=== PATIENT | male | born 1980 | race Caucasian/White ===

== ENCOUNTER 2017-02-24 16:30 | Emergency (ER) | payer BC, OTHER ==
[2017-02-24 16:41] VITALS: TEMP 98.2; BMI 30.9
--- NOTE | 2017-02-24 17:14 | PDOC ---
History of Present Illness - General History Source: Patient Exam Limitations: No Limitations - History of Present Illness Initial Comments: 02/24/17 17:55 The patient is a 36 year old male, with a significant past medical history of hyperlipidemia, who presents to the emergency department complaining of chest pain for approximately one week. He describes the chest pain as intermittent and nonradiating. The patient reports associated numbness to the left arm. He reports associated shortness of breath and diaphoresis, but denies palpitations or lower extremity edema. Patient admits he has recently been under a lot due to recent scam. Patient states he has had several panic attacks within the past 2 days after receiving threats online. The patient denies any hallucinations or suicidal ideations.The patient reports visiting an urgent care clinic earlier today with similar symptoms, during which he had an EKG done, which was normal. The patient denies any fever, chills, headache, or dizziness. The patient denies any recent travel or sick contacts. Allergies: None reported Past Surgical History: None reported Social History: ETOH use. Non smoker. No drug use. PCP: Dr. Ramirez <Manuel Mancuso - Last Filed: 02/24/17 17:55> <Agueda Pandya - Last Filed: 02/27/17 08:42> - General Chief Complaint: Chest Pain Stated Complaint: CHEST PAIN, LT ARM PAIN Time Seen by Provider: 02/24/17 17:12 Past History <Manuel Mancuso - Last Filed: 02/24/17 17:55> - Past Medical History Hypercholesterolemia: Yes - Psycho/Social/Smoking Cessation Hx Anxiety: No Suicidal Ideation: No Smoking History: Never smoked Hx Alcohol Use: Yes Drug/Substance Use Hx: No Substance Use Type: Alcohol <Agueda Pandya - Last Filed: 02/27/17 08:42> - Past Medical History Allergies/Adverse Reactions: Allergies Allergy/AdvReac Type Severity Reaction Status Date / Time No Known Allergies Allergy Verified 02/24/17 16:38 Home Medications: Ambulatory Orders NK [No Known Home Medication] 02/24/17 Review of Systems - Review of Systems Able to Perform ROS?: Yes Comments:: 02/24/17 17:56 GENERAL/CONSTITUTIONAL: No fever or chills. No weakness. HEAD, EYES, EARS, NOSE AND THROAT: No change in vision. No ear pain or discharge. No sore throat. CARDIOVASCULAR: Yes: +chest pain, +shortness of breath, +diaphoresis. RESPIRATORY: No cough, wheezing, or hemoptysis. GASTROINTESTINAL: No nausea, vomiting, diarrhea or constipation. GENITOURINARY: No dysuria, frequency, or change in urination. MUSCULOSKELETAL: No joint or muscle swelling or pain. No neck or back pain. SKIN: No rash NEUROLOGIC: Yes: +left arm numbness. No headache, vertigo, loss of consciousness , or change in strength. ENDOCRINE: No increased thirst. No abnormal weight change. HEMATOLOGIC/LYMPHATIC: No anemia, easy bleeding, or history of blood clots. ALLERGIC/IMMUNOLOGIC: No hives or skin allergy. PSYCHIATRIC: +Anxiety/panic attack. No hallucinations or suicidal ideations. <Manuel Mancuso - Last Filed: 02/24/17 17:55> *Physical Exam - Vital Signs Last Vital Signs Temp Pulse Resp BP Pulse Ox 98.2 F 98 H 17 139/92 98 02/24/17 16:37 02/24/17 17:27 02/24/17 17:27 02/24/17 17:27 02/24/17 17:27 - Physical Exam Comments: 02/24/17 17:55 GENERAL: Awake, alert, and fully oriented, in no acute distress HEAD: No signs of trauma EYES: PERRLA, EOMI, sclera anicteric, conjunctiva clear ENT: Auricles normal inspection, hearing grossly normal, nares patent, oropharynx clear without exudates. Moist mucosa NECK: Normal ROM, supple, no lymphadenopathy, JVD, or masses LUNGS: Breath sounds equal, clear to auscultation bilaterally. No wheezes, and no crackles HEART: Regular rate and rhythm, normal S1 and S2, no murmurs, rubs or gallops ABDOMEN: Soft, nontender, normoactive bowel sounds. No guarding, no rebound. No masses EXTREMITIES: Normal range of motion, no edema. No clubbing or cyanosis. No cords, erythema, or tenderness NEUROLOGICAL: Cranial nerves II through XII grossly intact. Normal speech, normal gait SKIN: Warm, Dry, normal turgor, no rashes or lesions noted. <Manuel Mancuso - Last Filed: 02/24/17 17:55> - Vital Signs Last Vital Signs Temp Pulse Resp BP Pulse Ox 98.2 F 104 H 18 154/97 98 02/24/17 16:37 02/24/17 16:37 02/24/17 16:37 02/24/17 16:37 02/24/17 17:09 <Agueda Pandya - Last Filed: 02/27/17 08:42> ED Treatment Course - LABORATORY CBC & Chemistry Diagram: 02/24/17 17:20 02/24/17 17:20 - ADDITIONAL ORDERS Additional order review: 02/24/17 17:20 RBC 5.53 MCV 85.7 MCHC 33.5 RDW 14.4 MPV 7.6 Neutrophils % 48.7 Lymphocytes % 43.2 H Monocytes % 6.6 Eosinophils % 0.6 Basophils % 0.9 <Manuel Mancuso - Last Filed: 02/24/17 17:55> - LABORATORY CBC & Chemistry Diagram: 02/24/17 17:20 02/24/17 17:20 <Agueda Pandya - Last Filed: 02/27/17 08:42> Medical Decision Making - Medical Decision Making Pain occurred for prior 6 days. Patient is low risk for ACS by clinical eval. EKG wnl. CE negative. Stable for DC home. <Agueda Pandya - Last Filed: 02/27/17 08:42> *DC/Admit/Observation/Transfer - Attestations Scribe Attestion: 02/24/17 17:55 Documentation prepared by Manuel Mancuso, acting as medical center director for Agueda Pandya MD. <Manuel Mancuso - Last Filed: 02/24/17 17:55> - Discharge Dispostion Admit: No <Agueda Pandya - Last Filed: 02/27/17 08:42> Diagnosis at time of Disposition: Chest pain Qualifiers: Chest pain type: unspecified Qualified Code(s): R07.9 - Chest pain, unspecified - Discharge Dispostion Disposition: HOME Condition at time of disposition: Stable - Referrals Referrals: Jordan Ramirez MD [Primary Care Provider] - - Patient Instructions Printed Discharge Instructions: DI for Chest Pain
[2017-02-24 17:31] LABS: BASOPHIL 0.9 % (0-2.0); EOSINOPHIL 0.6 % (0-4.5); MCH 28.7 pg (25.7-33.7); MCHC 33.5 g/dl (32.0-35.9); MEAN CELL VOLUME 85.7 fl (80-96); MEAN PLT VOLUME 7.6 fl (7.5-11.1); NEUTROPHILS 48.7 % (42.8-82.8); PLATELET COUNT 312 K/MM3 (134-434); RDW 14.4 % (11.9-15.9)
[2017-02-24 18:05] LABS: ALBUMIN 4.4 g/dl (3.4-5.0); ANION GAP 9 (8-16); BILIRUBIN,TOTAL 0.6 mg/dL (0.2-1.0); CALCIUM 9.1 mg/dL (8.5-10.1); CO2 28 mmol/L (21-32); COCKROFT - GAULT 97.33; CREATININE 1.2 mg/dL (0.7-1.3); GLUCOSE,RANDOM 103 mg/dL (74-106); SGOT/AST 21 U/L (15-37); SGPT/ALT 45 U/L (12-78)
[2017-02-24 18:07] LABS: ALK PHOS 137 U/L (45-117); TROPONIN I < 0.02 ng/ml (0.00-0.05)
[2017-02-24 18:29] VITALS: BP 133/89; PULSE 89
--- NOTE | 2017-02-26 15:39 | EKG ---
Test Reason : Blood Pressure : / mmHG Vent. Rate : 097 BPM Atrial Rate : 097 BPM P-R Int : 146 ms QRS Dur : 090 ms QT Int : 336 ms P-R-T Axes : 025 009 031 degrees QTc Int : 426 ms NORMAL SINUS RHYTHM NORMAL ECG WHEN COMPARED WITH ECG OF 12-AUG-2010 14:28, NO SIGNIFICANT CHANGE WAS FOUND Confirmed by EDWINA SHAFER MD ([id number]) on 02/26/2017 3:39:06 PM Referred By: Confirmed By:EDWINA SHAFER MD
== END 2017-02-24 18:29 | disposition home or self-care (01) ==
LOC: JER 16:30 → SUPCPDRO 16:30 → JER 18:29
DX: R07.9 Chest pain, unspecified (principal)
CPT/HCPCS: 36415; 71020-TC; 80053; 82550; 82553; 84484; 85025; 93005; 93010; 99284-25

== ENCOUNTER 2018-07-08 20:58 | Observation (INO) | payer BC, OTHER ==
[2018-07-08] MEDS ORDERED: SODIUM CHLORIDE 2,000 ML IV ONE (21:40)
[2018-07-08] MEDS ORDERED: ONDANSETRON 4 MG/2 ML VIAL IVPUSH ONE (21:41)
--- NOTE | 2018-07-08 21:50 | PDOC ---
History of Present Illness - General Chief Complaint: Lightheaded Stated Complaint: vomiting Time Seen by Provider: 07/08/18 21:33 History Source: Patient, Family Exam Limitations: No Limitations - History of Present Illness Initial Comments: 07/08/18 21:48 This is a 37 YOM with h/o HLD and occasional EtOH use who p/w constant vertigo since awakening this morning with about 10 episodes NBNB vomiting today. He additionally notes mild substernal chest pressure, but otherwise no additional symptoms (no LIN, n/t/w focally, neck pain, back pain, abdominal pain, f/c, diarrhea, constipation, testicular pain/swelling, dysuria, SOB, or other symptoms. Per his companions he has been acting normally. He has never had room- spinning dizziness like this before in his life. NIH Stroke Scale - Last Known Well Date/Time & Onset Date Last Known Well: 07/07/18 Time Last Known Well: 23:00 - Initial Evaluation Level of consciousness: Alert Ask patient the month and their age: Answers both correctly Ask patient to open & close eyes; make fist and let go: Obeys both correctly Best gaze (horizontal eye movement): Normal Visual field testing: No visual field loss Facial paresis (Show teeth/raise eyebrows/close eyes tight): Normal symmetrical movement Motor Function: Left Arm: Normal Motor Function: Right Arm: Normal (extends arm 90 (or 45) degrees for 10 seconds without drift Motor Function: Left Leg: Normal (extends leg 30 degrees for 5 seconds without drift) Motor Function: Right Leg: Normal (extends leg 30 degrees for 5 seconds without drift) Limb Ataxia: No ataxia Sensory(Use pinprick test arms,legs,trunk,face/side to side): Normal Best language (Describe picture, name items, read sentences): No Aphasia Dysarthria (read several words): Normal articulation Extinction and Inattention: No abnormality - Total Score NIH Stroke Scale Score: 0 Past History - Past Medical History Allergies/Adverse Reactions: Allergies Allergy/AdvReac Type Severity Reaction Status Date / Time No Known Allergies Allergy Verified 07/08/18 21:10 Home Medications: Ambulatory Orders NK [No Known Home Medication] 02/24/17 COPD: No Hypercholesterolemia: Yes - Suicide/Smoking/Psychosocial Hx Smoking History: Never smoked Hx Alcohol Use: Yes Drug/Substance Use Hx: No Substance Use Type: Alcohol Review of Systems - Review of Systems Able to Perform ROS?: Yes Constitutional: No: Chills, Fever, Unexplained wgt Loss HEENTM: No: Nose Congestion, Throat Pain Respiratory: No: Cough, Shortness of Breath Cardiac (ROS): No: Chest Pain, Palpitations ABD/GI: No: Constipated, Diarrhea, Nausea, Vomiting : No: Burning, Dysuria Musculoskeletal: No: Back Pain, Neck Pain Integumentary: No: Bruising, Rash Neurological: No: Headache, Numbness, Tingling, Weakness, Dizziness Endocrine: No: Unexplained Weight Gain, Unexplained Weight Loss *Physical Exam - Vital Signs Last Vital Signs Temp Pulse Resp BP Pulse Ox 87 18 196/104 H 100 07/08/18 21:05 07/08/18 21:05 07/08/18 21:05 07/08/18 21:05 GENERAL: uncomfortable appearing, sitting on bedside vomiting into emesis basin , companions at bedside, A/Ox4, speaking in full sentences, answers questions appropriately, nontoxic appearing other than vomiting HEENT: PERRLA, EOMI, moist mucous membranes, no posterior pharyngeal erythema, no tonsillar swelling or exudates, no cervical lymphadenopathy NECK: no midline ttp, no spinal stepoff or deformity, full ROM, supple CARDIOVASCULAR: regular rate and rhythm, normal S1S2, MGR, radial and DP pulses 2+ and symmetric, capillary refill <2 seconds, extremities warm and well- perfused LUNGS/RESPIRATORY: no respiratory distress, normal and symmetric chest movements during respirations, lungs CTA bilaterally, equal breath sounds, no cyanosis, no nail clubbing GI/ABDOMEN: symmetric appearance, normoactive bowel sounds, soft, no tenderness to palpation, no midline pulsatile masses, no palpated organomegaly : no CVA tenderness BACK: no midline ttp or stepoff or deformity of thoracic or lumbar spine EXTREMITIES: distal pulses 2+, warm and well-perfused, no LE edema SKIN: warm and dry, no pallor, no jaundice, no bruising, no rash, no skin breakdown, no cuts, no lesions NEUROLOGICAL: GCS 15, CN II-XII grossly intact, gait not initially tested, mild truncal ataxia, horizontal nystagmus on left lateral gaze which is non- direction changing and not rotational, moving all extremities, 5/5 strength proximally and distally, no facial droop, no decreased sensation Heart Score/ECG Review #1 Sinus rhythm, rate of 97, normal axis and intervals, incomplete RBBB, no ischemic ST-T changes. ED Treatment Course - LABORATORY CBC & Chemistry Diagram: 07/08/18 21:55 07/08/18 21:55 - RADIOLOGY Radiology Studies Ordered: Category Date Time Status HEAD CT WITHOUT CONTRAST [CT] Stat CT Scan 07/08/18 21:40 Ordered CHEST PA & LAT [RAD] Stat Radiology 07/08/18 21:40 Ordered CHEST X-RAY PORTABLE* [RAD] Stat Radiology 07/08/18 21:40 Stop Req Medical Decision Making - Medical Decision Making Adult Pt p/w room-spinning dizziness with their recall of sxs consistent with vertigo. Also ~10 episodes NBNB vomiting, inability to balance or ambulate. Initial Vital Signs Pulse Resp BP Pulse Ox 87 18 196/104 H 100 07/08/18 21:05 07/08/18 21:05 07/08/18 21:05 07/08/18 21:05 Exam: As noted in Physical Exam section. DDX IBNLT: peripheral cause (BPPV, otitis media, vestibular neuritis, herpes zoster oticus AKA Vickey Parker syndrome, Meniere disease, labyrinthine concussion , perilymphatic fistula, semicircular canal dehiscence syndrome, Angie syndrome , recurrent vestibulopathy, acoustic neuroma, aminoglycoside toxicity), central cause (brainstem ischemia or cerebellar infarction or hemorrhage e.g. thromboembolism/thrombosis/dissection, vestibular migraine, multiple sclerosis, Chiari malformation, episodic ataxia type 2), or non-vertiginous cause of dizziness (i.e. lightheadedness c/f pre-syncope). W/U ordered: CBCD CMP Mg Phos Cardiac panel Coags T&S EKG CXR Head CT WWO contrast Neck CTA TX ordered: IV, IVF, IV Zofran, PO Ativan, PO Meclizine Laboratory Tests 07/08/18 07/08/18 07/08/18 21:55 21:55 21:55 WBC 14.3 H RBC 5.73 H Hgb 16.6 Hct 50.1 H MCV 87.4 MCH 29.0 MCHC 33.2 RDW 13.8 Plt Count 319 MPV 7.8 Absolute Neuts (auto) 12.2 H Neutrophils % 85.0 H D Lymphocytes % 10.3 D Monocytes % 4.3 Eosinophils % 0.0 D Basophils % 0.4 Nucleated RBC % 0 PT with INR 11.70 INR 0.99 Sodium 137 Potassium 5.2 H Chloride 101 Carbon Dioxide 26 Anion Gap 10 BUN 17 Creatinine 1.0 Creat Clearance w eGFR > 60 Random Glucose 168 H Calcium 8.6 Total Bilirubin 0.8 AST 73 H ALT 117 H Alkaline Phosphatase 139 H Creatine Kinase 184 Creatine Kinase Index 0.5 CK-MB (CK-2) 1.1 Troponin I < 0.02 Total Protein 8.5 H Albumin 4.4 Urine Color Urine Appearance Urine pH Ur Specific Shell[place] Urine Protein Urine Glucose (UA) Urine Ketones Urine Blood Urine Nitrite Urine Bilirubin Urine Urobilinogen Ur Leukocyte Esterase Urine WBC (Auto) Urine RBC (Auto) Ur Epithelial Cells Urine Mucus Blood Type Antibody Screen 07/08/18 07/09/18 21:55 00:17 WBC RBC Hgb Hct MCV MCH MCHC RDW Plt Count MPV Absolute Neuts (auto) Neutrophils % Lymphocytes % Monocytes % Eosinophils % Basophils % Nucleated RBC % PT with INR INR Sodium Potassium Chloride Carbon Dioxide Anion Gap BUN Creatinine Creat Clearance w eGFR Random Glucose Calcium Total Bilirubin AST ALT Alkaline Phosphatase Creatine Kinase Creatine Kinase Index CK-MB (CK-2) Troponin I Total Protein Albumin Urine Color Yellow Urine Appearance Clear Urine pH 6.0 Ur Specific Shellman 1.033 Urine Protein 2+ H Urine Glucose (UA) 2+ H Urine Ketones 1+ H Urine Blood Negative Urine Nitrite Negative Urine Bilirubin Negative Urine Urobilinogen Negative Ur Leukocyte Esterase Negative Urine WBC (Auto) 4 Urine RBC (Auto) <1 Ur Epithelial Cells Rare Urine Mucus Many Blood Type Cancelled Antibody Screen Cancelled EKG: Reviewed; results as noted in ECG Review section. CXR: Nothing acute Head CT WO contrast: Nothing acute Reassessment: Patient continues having vertigo, worse changing positions but always present. Continued having left horizontal nystagmus although extinguishes after 8 seconds now. Veering to the left on ambulation, unable to ambulate alone. Vital Signs Temperature 98.3 F 07/09/18 00:09 Pulse Rate 81 07/09/18 00:09 Respiratory Rate 18 07/09/18 00:09 Blood Pressure 127/83 07/09/18 00:09 O2 Sat by Pulse Oximetry (%) 98 07/09/18 00:09 The Pt is unsafe for discharge at this time. They require further hospital observation, workup, and treatment. Patient's PCP is Dr. Kurtz. Microblog sent to [facility] for admission. Blank Decision to Admit order is placed per ED protocol. 07/09/18 01:13 I spoke with SENIOR TECHNICAL TRAINER Citlali Collado, patient going to Med/Surg Obs. Decision to Admit order corrected with Dr. Stark' name. I placed order for consult with Dr. Moreno who is weapons electrical engineering officer and also is consult preference for Dr. Kurtz's group. *DC/Admit/Observation/Transfer Diagnosis at time of Disposition: Vertigo Vomiting Qualifiers: Vomiting type: unspecified Vomiting Intractability: unspecified Nausea presence : with nausea Qualified Code(s): R11.2 - Nausea with vomiting, unspecified - Discharge Dispostion Condition at time of disposition: Guarded Decision to Admit order: Yes - Referrals - Patient Instructions - Post Discharge Activity
[2018-07-08] MEDS ORDERED: MECLIZINE HCL 25 MG TABLET (FP) PO ONE (22:00)
[2018-07-08] MEDS ORDERED: ONDANSETRON 4 MG/2 ML VIAL ONE (22:02)
[2018-07-08] MEDS ORDERED: LORazepam 0.5 MG TABLET PO ONE (22:16)
[2018-07-08] MEDS ORDERED: LORazepam 0.5 MG TABLET ONE (22:18)
[2018-07-08] MEDS ORDERED: MECLIZINE HCL 25 MG TABLET (FP) ONE (22:18)
[2018-07-08 22:30] LABS: BASO % 0.4 % (0-2.0); HEMATOCRIT 50.1 % (35.4-49); HEMOGLOBIN 16.6 GM/dL (11.7-16.9); LYMPH % 10.3 % (8-40); MCHC 33.2 g/dl (32.0-35.9); MEAN CELL VOLUME 87.4 fl (80-96); MEAN PLT VOLUME 7.8 fl (7.5-11.1); MONO % 4.3 % (3.8-10.2); PLATELET COUNT 319 K/MM3 (134-434); RBC 5.73 M/mm3 (4.00-5.60); RDW 13.8 % (11.9-15.9); WHITE BLOOD COUNT 14.3 K/mm3 (4.0-10.0)
[2018-07-08 22:45] LABS: INR 0.99 (0.83-1.09); PROTHROMBIN TIME (PATIENT) 11.7 SEC (9.7-13.0)
[2018-07-08 23:00] LABS: ALBUMIN 4.4 g/dl (3.4-5.0); ALK PHOS 139 U/L (45-117); ANION GAP 10 MMOL/L (8-16); BILIRUBIN,TOTAL 0.8 mg/dL (0.2-1); BLOOD UREA NITROGEN 17 mg/dL (7-18); CALCIUM 8.6 mg/dL (8.5-10.1); CHLORIDE 101 mmol/L (98-107); CO2 26 mmol/L (21-32); GLUCOSE,RANDOM 168 mg/dL (74-106); SGPT/ALT 117 U/L (13-61); SODIUM 137 mmol/L (136-145); TOT PROT 8.5 g/dl (6.4-8.2)
[2018-07-08 23:01] LABS: POTASSIUM 5.2 mmol/L (3.5-5.1); SGOT/AST 73 U/L (15-37)
--- NOTE | 2018-07-08 23:31 | PDOC ---
Attending Attestation - HPI HPI: 07/08/18 23:33 The patient is a 37 year old male, with a significant past medical history of HLD, who presents to the ED complaining of chest pain, nausea, vomiting and dizziness since this morning. He reports a total of 10 episodes of nonbilious and nonbloody emesis. He describes his chest pain as a pressure, ranging from mild to moderate, without radiation or modifying factors. He reports that he has never had this kind of dizziness where the room is spinning before. The patient denies shortness of breath, headache, fever, chills, diarrhea or constipation. Denies dysuria, frequency, urgency and hematuria. Allergies: None reported Past Surgical History: None reported Social History: ETOH use. Non smoker. No drug use. PCP: Dr. Ramirez <Phuc Robles - Last Filed: 07/08/18 23:33> - Physicial Exam PE: 07/09/18 01:18 Vitals: Triage vital signs reviewed General Appearance: No acute distress, well nourished, well developed Eyes: little nystagmus. Pupils equal reactive round, extraocular movement intact Neck: Supple; No nuchal rigidity Chest Wall: Nontender Cardiac: Regular rate and rhythm, no murmurs, no rubs, no gallops Lungs: Clear to auscultation bilateral, good air movement bilaterally Abdomen: Soft, nondistended, normal bowel sounds, nontender to palpation Extremities: Full range of motion to all extremities, no cyanosis, clubbing, or edema Skin: Warm and dry, no rashes or lesions, no rash, no petechiae Neuro: (+) Good strength, good sensation, unsteady gait. AOX3; Cranial Nerves 2 -12 grossly intact, Strength intact to all extremities, Sensation intact to all extremities. Psych: Normal mood, normal affect - Medical Decision Making 07/09/18 01:19 Documentation prepared by Ana Epps, acting as medical instrument technician for Fadi Bianchi MD. <Ana Epps - Last Filed: 07/09/18 01:18> - Resident Resident Name: Kathy Bryan - ED Attending Attestation I have performed the following: I have examined & evaluated the patient, The case was reviewed & discussed with the resident, I agree w/resident's findings & plan, Exceptions are as noted - Medical Decision Making 37 years old past medical history significant for hyperlipidemia presents to the emergency department with intense room spinning sensation nausea vomiting. He feels unbalanced when he ambulates he tried to go to work but was too symptomatic and was sent home during the entire day symptoms have been persistent concent but at times are worse when turning his head in certain directions In the emergency department patient actively vomiting multiple times was ordered for 2 L of normal saline meclizine and Ativan and a cat CT His neurologic examination is notable for horizontal nystagmus which worsens when he looks to the left as well as unsteady gait Despite fluids and medications patient still remains symptomatic his history and examination is most consistent with vertigo although the persistence of the symptomatology and the lack of a complete resolution in between episodes may require further management We'll admit to the hospital for neurology consultation and further management. <Fadi Bianchi - Last Filed: 07/09/18 04:12>
[2018-07-09 00:50] LABS: URINE APPEARANCE CLEAR; URINE BILIRUBIN NEGATIVE (<2.0 mg/dL); URINE COLOR YELLOW; URINE GLUCOSE (UA) 2+ (NEGATIVE); URINE KETONE 1+ (NEGATIVE); URINE LEUK ESTERASE NEGATIVE (NEGATIVE); URINE NITRITE NEGATIVE (NEGATIVE); URINE PROTEIN 2+ (NEGATIVE); URINE UROBILINOGEN NEGATIVE mg/dL (0.2-1.0)
[2018-07-09 00:55] LABS: EPI CELLS RARE /HPF (FEW); URINE MUCUS MANY
[2018-07-09] MEDS ORDERED: ONDANSETRON 4 MG/2 ML VIAL IVPUSH PRN (02:26)
[2018-07-09] MEDS ORDERED: MECLIZINE HCL 25 MG TABLET (FP) PO PRN (02:28)
--- NOTE | 2018-07-09 02:34 | HP ---
CHIEF COMPLAINT: dizziness/vomiting PCP: Jerardo HISTORY OF PRESENT ILLNESS: This is a 37 year old male with a past medical history of hyperlipidemia who presented to the ED with dizziness since awakening this am. He reports that the dizziness would get worse with any kind of movement, which would promptly cause vomiting, as well as closing his eyes. He reports feeling better in that he can now close his eyes without the room spinning and moving his head elicits less severe dizziness than at time of arrival. He reports 10 episodes of vomiting at home with burning in chest with vomiting. No further chest discomfort at present. Denies fever/chills. ER course was notable for: (1) CT head unremarkable (2) WBC 14.3 (3) LFTs slightly elevated Recent Travel: [place] 06/21-07/04 PAST MEDICAL HISTORY: HLD PAST SURGICAL HISTORY: eye surgery as a small child - Maybe for a "bump" in his eye Social History: Smoking: pt denies Alcohol: weekends/socially, last drank in [place] Drugs: pt denies Family History: mother in a fire, h/o asthma father with cataracts sister with heart murmur sister with asthma brother with no medical problems Allergies No Known Allergies Allergy (Verified 07/08/18 21:10) HOME MEDICATIONS: 3 Medication Instructions Recorded NK [No Known Home Medication] 02/24/17 REVIEW OF SYSTEMS CONSTITUTIONAL: Absent: fever, chills, diaphoresis, generalized weakness, malaise, loss of appetite, weight change HEENT: Absent: rhinorrhea, nasal congestion, throat pain, throat swelling, difficulty swallowing, mouth swelling, ear pain, eye pain, visual changes CARDIOVASCULAR: Absent: chest pain, syncope, palpitations, irregular heart rate, lightheadedness , peripheral edema RESPIRATORY: Absent: cough, shortness of breath, dyspnea with exertion, orthopnea, wheezing, stridor, hemoptysis GASTROINTESTINAL: Present: nausea, vomiting Absent: abdominal pain, abdominal distension, diarrhea, constipation, melena, hematochezia GENITOURINARY: Absent: dysuria, frequency, urgency, hesitancy, hematuria, flank pain, genital pain MUSCULOSKELETAL: Absent: myalgia, arthralgia, joint swelling, back pain, neck pain SKIN: Absent: rash, itching, pallor HEMATOLOGIC/IMMUNOLOGIC: Absent: easy bleeding, easy bruising, lymphadenopathy, frequent infections ENDOCRINE: Absent: unexplained weight gain, unexplained weight loss, heat intolerance, cold intolerance NEUROLOGIC: Present: dizziness Absent: headache, focal weakness or paresthesias, unsteady gait, seizure, mental status changes, bladder or bowel incontinence PSYCHIATRIC: Absent: anxiety, depression, suicidal or homicidal ideation, hallucinations. PHYSICAL EXAMINATION Vital Signs - 24 hr 3 07/08/18 07/09/18 21:05 00:09 Temperature 98.3 F Pulse Rate 87 Pulse Rate [ 81 Apical] Respiratory 18 18 Rate Blood Pressure 196/104 H Blood Pressure 127/83 [Right Arm] O2 Sat by Pulse 100 98 Oximetry (%) GENERAL: Awake, alert, and fully oriented, in no acute distress. HEAD: Normal with no signs of trauma. EYES: Pupils equal, round and reactive to light, extraocular movements intact, sclera anicteric, conjunctiva clear. No lid lag. nystagmus on left lateral gaze now resolved EARS, NOSE, THROAT: Ears normal, nares patent, oropharynx clear without exudates. Moist mucous membranes. NECK: Normal range of motion, supple without lymphadenopathy, JVD, or masses. LUNGS: Breath sounds equal, clear to auscultation bilaterally. No wheezes, and no crackles. No accessory muscle use. HEART: Regular rate and rhythm, normal S1 and S2 without murmur, rub or gallop. ABDOMEN: Soft, nontender, not distended, normoactive bowel sounds, no guarding, no rebound, no masses. No hepatomegaly or splenomegaly. MUSCULOSKELETAL: Normal range of motion at all joints. No bony deformities or tenderness. No CVA tenderness. UPPER EXTREMITIES: 2+ pulses, warm, well-perfused. No cyanosis. No clubbing. No peripheral edema. LOWER EXTREMITIES: 2+ pulses, warm, well-perfused. No calf tenderness. No peripheral edema. NEUROLOGICAL: Cranial nerves II-XII intact. Normal speech. Normal gait. PSYCHIATRIC: Cooperative. Good eye contact. Appropriate mood and affect. SKIN: Warm, dry, normal turgor, no rashes or lesions noted, normal capillary refill. Laboratory Results - last 24 hr 3 07/08/18 07/08/18 07/08/18 21:55 21:55 21:55 WBC 14.3 H RBC 5.73 H Hgb 16.6 Hct 50.1 H MCV 87.4 MCH 29.0 MCHC 33.2 RDW 13.8 Plt Count 319 MPV 7.8 Absolute Neuts (auto) 12.2 H Neutrophils % 85.0 H D Lymphocytes % 10.3 D Monocytes % 4.3 Eosinophils % 0.0 D Basophils % 0.4 Nucleated RBC % 0 PT with INR 11.70 INR 0.99 Sodium 137 Potassium 5.2 H Chloride 101 Carbon Dioxide 26 Anion Gap 10 BUN 17 Creatinine 1.0 Creat Clearance w eGFR > 60 Random Glucose 168 H Calcium 8.6 Total Bilirubin 0.8 AST 73 H ALT 117 H Alkaline Phosphatase 139 H Creatine Kinase 184 Creatine Kinase Index 0.5 CK-MB (CK-2) 1.1 Troponin I < 0.02 Total Protein 8.5 H Albumin 4.4 Urine Color Urine Appearance Urine pH Ur Specific [place] Urine Protein Urine Glucose (UA) Urine Ketones Urine Blood Urine Nitrite Urine Bilirubin Urine Urobilinogen Ur Leukocyte Esterase Urine WBC (Auto) Urine RBC (Auto) Ur Epithelial Cells Urine Mucus Blood Type Antibody Screen 3 Urine Color Yellow 07/09/18 00:17 Urine Appearance Clear 07/09/18 00:17 Urine pH 6.0 (5.0-8.0) 07/09/18 00:17 Ur Specific [place] 1.033 (1.010-1.035) 07/09/18 00:17 Urine Protein 2+ (NEGATIVE) H 07/09/18 00:17 Urine Glucose (UA) 2+ (NEGATIVE) H 07/09/18 00:17 Urine Ketones 1+ (NEGATIVE) H 07/09/18 00:17 Urine Blood Negative (NEGATIVE) 07/09/18 00: Urine Nitrite Negative (NEGATIVE) 07/09/18 00: Urine Bilirubin Negative (<2.0 mg/dL) 07/09/18 00:17 Ur Leukocyte Esterase Negative (NEGATIVE) 07/09/18 00:17 Ur Epithelial Cells Rare /HPF (FEW) 07/09/18 00:17 Urine WBC (Auto) 4 07/09/18 00:17 Urine RBC (Auto) <1 07/09/18 00:17 Urine Mucus Many 07/09/18 00:17 ECG Normal sinus rhythm vent rate 64, QTC [address]/T wave changes Radiology Reports CT head without contrast THIS IS A PRELIMINARY REPORT FROM [facility] FINDINGS: No obvious infarct. Please note that infarcts less than 6 hours from onset may not be detectable on CT. MRI is more sensitive. No hemorrhage. No mass. No shift or herniation. Osseous structures are intact. THIS DOCUMENT HAS BEEN ELECTRONICALLY SIGNED Ric Maciel MD 07/08/2018 23:38 EST ASSESSMENT/PLAN: 37yM with PMH HLD presented to the ED with dizziness. vertigo - sx improved after zofran, meclizine and ativan - neuro consult - consider ENT consult HLD - pt denies any home meds for same DVT PPX - heparin deferred, low risk, anticipated LOS less than 48h FEN - tolerating po - BMP in am - regular diet as tolerated Dispo: pt currently requires further observation for management of his emergent condition. Visit type - Emergency Visit Emergency Visit: Yes ED Registration Date: 07/08/18 Care time: The patient presented to the Emergency Department on the above date and was hospitalized for further evaluation of their emergent condition. - New Patient This patient is new to me today: Yes Date on this admission: 07/09/18 - Critical Care Critical Care patient: No
[2018-07-09 07:32] LABS: BASO % 0.4 % (0-2.0); EOS % 0.1 % (0-4.5); HEMOGLOBIN 14.9 GM/dL (11.7-16.9); LYMPH % 23.6 % (8-40); MCH 28.8 pg (25.7-33.7); MCHC 33.1 g/dl (32.0-35.9); MEAN CELL VOLUME 86.9 fl (80-96); MEAN PLT VOLUME 7.5 fl (7.5-11.1); MONO % 9.6 % (3.8-10.2); NEUT % 66.3 % (42.8-82.8); PLATELET COUNT 271 K/MM3 (134-434); RBC 5.18 M/mm3 (4.00-5.60); RDW 13.9 % (11.9-15.9); WHITE BLOOD COUNT 11.4 K/mm3 (4.0-10.0)
[2018-07-09 07:58] LABS: ANION GAP 5 MMOL/L (8-16); BLOOD UREA NITROGEN 12 mg/dL (7-18); CALCIUM 8.1 mg/dL (8.5-10.1); CHLORIDE 107 mmol/L (98-107); CO2 29 mmol/L (21-32); CREATININE 0.9 mg/dL (0.55-1.3); GLUCOSE,RANDOM 99 mg/dL (74-106); MAGNESIUM 2.4 mg/dL (1.8-2.4); PHOSPHOROUS 4.2 mg/dL (2.5-4.9); POTASSIUM 4.4 mmol/L (3.5-5.1); SODIUM 140 mmol/L (136-145)
[2018-07-09 08:52] LABS: ALBUMIN 3.6 g/dl (3.4-5.0); ALK PHOS 107 U/L (45-117); BILIRUBIN,DIRECT 0.2 mg/dL (0.0-0.2); BILIRUBIN,TOTAL 0.7 mg/dL (0.2-1); SGOT/AST 30 U/L (15-37); SGPT/ALT 85 U/L (13-61); TOT PROT 6.7 g/dl (6.4-8.2)
--- NOTE | 2018-07-09 09:03 | PN ---
Progress Note, Physician History of Present Illness: 37 year old male with a past medical history of hyperlipidemia who presented to the ED with dizziness since awakening this am. He reports that the dizziness would get worse with any kind of movement, which would promptly cause vomiting, as well as closing his eyes. He reports feeling better in that he can now close his eyes without the room spinning and moving his head elicits less severe dizziness than at time of arrival. He reports 10 episodes of vomiting at home with burning in chest with vomiting. No further chest discomfort at present. Denies fever/chills. - Current Medication List Current Medications: Active Medications Meclizine HCl (Antivert -) 25 mg PO Q6H PRN PRN Reason: VERTIGO Ondansetron HCl (Zofran Injection) 4 mg IVPUSH Q6H PRN PRN Reason: NAUSEA - Objective Vital Signs: Vital Signs Temperature 98.1 F 07/09/18 07:32 Pulse Rate 70 07/09/18 07:32 Respiratory Rate 18 07/09/18 07:32 Blood Pressure 107/65 07/09/18 07:32 O2 Sat by Pulse Oximetry (%) 99 07/09/18 07:32 Cardiovascular: Yes: Regular Rate and Rhythm Respiratory: Yes: Regular, CTA Bilaterally Gastrointestinal: Yes: Normal Bowel Sounds, Soft Neurological: Yes: Alert, Oriented. No: Pre-Existing Deficit, Tremors Labs: CBC, BMP 07/09/18 06:45 07/09/18 06:45 INR, PTT INR 0.99 (0.83-1.09) 07/08/18 21:55 Problem List - Problems (1) Vertigo Assessment/Plan: CT head without contrast No hemorrhage. No mass. No shift or herniation - sx improved after zofran, meclizine and ativan - neuro consult Code(s): R42 - DIZZINESS AND GIDDINESS (2) Leukocytosis Assessment/Plan: IMPROVING--?VIRAL ID Code(s): D72.829 - ELEVATED WHITE BLOOD CELL COUNT, UNSPECIFIED (3) Vomiting Assessment/Plan: RESOLVED MAYBE DUE TO ABOVE Code(s): R11.10 - VOMITING, UNSPECIFIED Qualifiers: Vomiting type: unspecified Vomiting Intractability: unspecified Nausea presence: with nausea Qualified Code(s): R11.2 - Nausea with vomiting, unspecified
[2018-07-09] MEDS: MECLIZINE HCL 25 MG TABLET (FP) PO SCH ×3 (11:07→22:21)
--- NOTE | 2018-07-09 13:38 | PN ---
Progress Note (short form) - Note Progress Note: ID Consult dictated Vertigo, Leukocytosis, elevated LFTs in healthy male with recent travel to ? viral syndrome Obtain BC, flu swab, HIV test Repeat CBC. LFTS Observe off antibiotics Neurology evaluation Symptomatic tx
--- NOTE | 2018-07-09 14:19 | CONS ---
DATE OF CONSULTATION: DATE OF DICTATION: 07/09/2018 HISTORY: The patient is a healthy 37-year-old male who was evaluated for possible viral illness. The patient recently traveled to the [facility] from June 21 through July 04. He returned on MondayJuly 04. He reports feeling well up until July 08. He awoke from sleep and had vertigo. The patient describes the room as spinning. He felt nauseous and vomited. He presented to his job where he continued to have vomiting and vertigo. The patient was sent home. Symptoms persisted. He presented to the emergency room where he was evaluated. On initial evaluation, CT scan of the head was negative for acute pathology. He has had no fever; however, white blood cell count was elevated as are liver enzymes. At the present time, he reports improvement in his vertigo after medications. He denies any abdominal pain. His vomitus had been nonbloody, nonbilious. He has had no diarrhea, no rectal bleeding. He denies any fever or chills. The patient did have mosquito bites while in the [facility] however, he denies any rash. No other travelers became ill nor did they develop any gastrointestinal symptoms. 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 He is . His HIV status is not known. He denies any risk factors for HIV. No history of blood transfusions or intravenous drug use. He has not had an influenza vaccine. The patient denies any reports of photophobia or nuchal rigidity. There have been no reports of any mental status changes. PAST MEDICAL HISTORY: Positive for hyperlipidemia. ALLERGIES: No known allergies. MEDICATIONS: No home medications. SOCIAL HISTORY: As per HPI. SYSTEMS REVIEW: Neurologic: As per HPI. Cardiac: Negative chest pain or palpitations. Respiratory: Negative cough or sputum production. Gastrointestinal: As per HPI. Genitourinary: Negative for urinary tract infection. LABORATORY DATA: White count on admission 14,000 with 85 neutrophils, 10 lymphocytes, 4 monocytes, hematocrit 45, platelet count 271. AST 73, ALT 117, alkaline phosphatase 139. Urine culture is pending. Chest x-ray negative for acute infiltrate. PHYSICAL EXAMINATION: General: He is awake and alert. He is not acutely toxic appearing. Vital Signs: Temperature 98, blood pressure 115/61, pulse 73 and regular, respirations 20 per minute. HEENT: Sclerae anicteric. There is some mild conjunctival injection. Oropharynx negative. No injection or exudate. Neck: Supple. No palpable nodes. Heart: Sounds S1, S2. Lungs: Clear. Abdomen: Soft, nontender. No palpable liver or spleen. Extremities: Negative for edema. No rashes noted. IMPRESSION: Vertigo, leukocytosis, elevated liver enzymes in a healthy young male with recent travel to [facility]. Rule out viral syndrome. PLAN: No fever or symptoms to suggest an acute bacterial infection. We will, however, obtain blood cultures. White blood cell count has improved. We will obtain influenza swab and HIV serology. Monitor for development of leukopenia and thrombocytopenia to suggest a viral etiology. Repeat liver enzymes. Would observe off antibiotic therapy. IV fluid hydration. Neurology evaluation. Thank you for the kind referral. IZABEL MCKINNON M.D. [id number]
[2018-07-09] MEDS ORDERED: PT OWN MED DRAWER 7, Y5N ONE (15:31)
[2018-07-09 18:41] VITALS: BMI 29.6
--- NOTE | 2018-07-09 21:26 | EKG ---
Test Reason : Blood Pressure : / mmHG Vent. Rate : 064 BPM Atrial Rate : 064 BPM P-R Int : 150 ms QRS Dur : 096 ms QT Int : 408 ms P-R-T Axes : 004 032 031 degrees QTc Int : 420 ms NORMAL SINUS RHYTHM NORMAL ECG WHEN COMPARED WITH ECG OF 24-FEB-2017 16:38, VENT. RATE HAS DECREASED BY 33 BPM Confirmed by KAUSHIK FRANCO MD ([id number]) on 07/09/2018 9:26:22 PM Referred By: Confirmed By:KAUSHIK FRANCO MD
--- NOTE | 2018-07-09 22:01 | CONSULT ---
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 Yesterday, patient awoke with a vague sense of dizziness without spinning or unsteadiness. He had mild nausea without vomiting. At work, he began to vomit and was sent home. Once home, he developed refractory vertigo with the world spinning from right to left, intractable vomiting and ataxia (he had to crawl to the bathroom). In ER CT of head (reviewed) is normal and symptoms improved on IV Zofran, lorazepam and PO meclizine. Today feels "a little whoosy" but no alcira vertigo. Mild elevations in WBC and LFT's noted as well as improvement in both parameters this morning. KALEIGH: Neck supple. No bruits. Cor reg. NEURO: MS/speech: Normal CN II-XII: Normal aside from, a few beats of conjugate nystagmus on right gaze. Motor: No drift or tremor. Normal strength, tone and bulk. Normal reflexes. Toes downgoing. Coord: No FTN or HTS dystaxia. Sensory: Normal. Romberg neg Gait: Normal. Some difficulty with tandem (lists to the right). IMP: Acute Labyrinthitis (probably left-sided). SUGGEST: Continue meclizine 25 mg q 6hrs until free of vertigo x 48 hrs (can be continued as out patient). Follow WBC and LFT's to normal values. Neuro and ENT f/u as out patients. Thank you very much, Ric Moreno MD
[2018-07-10] MEDS: MECLIZINE HCL 25 MG TABLET (FP) PO SCH ×3 (02:42→14:46)
[2018-07-10 13:21] VITALS: BP 129/70; PULSE 77; TEMP 97.8
--- NOTE | 2018-07-10 14:11 | DS ---
Physical Examination Vital Signs: Vital Signs Temperature 97.8 F 07/10/18 13:19 Pulse Rate 77 07/10/18 13:19 Respiratory Rate 18 07/10/18 13:19 Blood Pressure 129/70 07/10/18 13:19 O2 Sat by Pulse Oximetry (%) 99 07/10/18 08:00 Constitutional: Yes: No Distress Eyes: Yes: WNL HENT: Yes: WNL Neck: Yes: WNL Cardiovascular: Yes: WNL Respiratory: Yes: WNL Gastrointestinal: Yes: WNL Renal/: Yes: WNL Musculoskeletal: Yes: WNL Extremities: Yes: WNL Edema: No Peripheral Pulses WNL: Yes Integumentary: Yes: WNL Wound/Incision: Yes: Clean/Dry Neurological: Yes: WNL ...Motor Strength: WNL Psychiatric: Yes: WNL Labs: CBC, BMP 07/09/18 06:45 07/09/18 06:45 Discharge Summary Reason For Visit: VERTIGO, VOMITING Current Active Problems Leukocytosis (Acute) Vertigo (Acute) Vomiting (Acute) Procedures: Principal: CT SCAN Hospital Course: ADMITTED VERTIGO/DIZZINESS/ACUTE LABRINTHITIS TREATED WITH NEURO WORKUP AND MECLIZINE Condition: Improved - Instructions Diet, Activity, Other Instructions: SEEN YOUR PMD DR PLEITEZ IN 1 WEEK Referrals: Kendrick Kurtz MD [Primary Care Provider] - Disposition: HOME - Home Medications Comprehensive Discharge Medication List: Ambulatory Orders Meclizine HCl [Antivert -] 25 mg PO Q6H #60 tablet 07/10/18 Ondansetron Injection [Zofran Injection] 4 mg IVPUSH Q6H PRN #30 vial 07/10/18
--- NOTE | 2018-07-10 14:25 | PN ---
Progress Note, Physician History of Present Illness: Vertigo nearly all resolved No c/o fever/ chills No ear pain or discharge Afebrile BC (-) Influenza (-) HIV (-) - Current Medication List Current Medications: Active Medications Meclizine HCl (Antivert -) 25 mg PO Q6H JOSIE Last Admin: 07/10/18 08:52 Dose: 25 mg Ondansetron HCl (Zofran Injection) 4 mg IVPUSH Q6H PRN PRN Reason: NAUSEA - Objective Vital Signs: Vital Signs Temperature 97.8 F 07/10/18 13:19 Pulse Rate 77 07/10/18 13:19 Respiratory Rate 18 07/10/18 13:19 Blood Pressure 129/70 07/10/18 13:19 O2 Sat by Pulse Oximetry (%) 99 07/10/18 08:00 Constitutional: Yes: No Distress Eyes: Yes: Conjunctiva Clear Cardiovascular: Yes: Regular Rate and Rhythm, S1, S2 Respiratory: Yes: CTA Bilaterally Gastrointestinal: Yes: Normal Bowel Sounds, Soft Edema: No Integumentary: Yes: Other (No rash) Labs: CBC, BMP 07/09/18 06:45 07/09/18 06:45 INR, PTT INR 0.99 (0.83-1.09) 07/08/18 21:55 Assessment/Plan Vertigo- improved ? viral syndrome Observe Outpatient neuro follow up
== END 2018-07-10 15:37 | disposition home or self-care (01) ==
LOC: JER 20:58 → JERBED 07-09 00:59 → INTOOBSV 07-09 00:59 → J7W 07-09 18:15
PROVIDERS: ADMIT Internal Medicine; ATTEND Family Medicine
PROC: 3E033GC Introduction of Other Therapeutic Substance into Peripheral Vein, Percutaneous Approach (ICD-10-PCS; principal; 2018-07-09)
PROC: 3E0337Z Introduction of Electrolytic and Water Balance Substance into Peripheral Vein, Percutaneous Approach (ICD-10-PCS; 2018-07-09)
DX: R42 Dizziness and giddiness (principal); H83.09 Labyrinthitis, unspecified ear; R11.12 Projectile vomiting; D72.829 Elevated white blood cell count, unspecified; R94.5 Abnormal results of liver function studies; E78.5 Hyperlipidemia, unspecified
CPT/HCPCS: 36415; 70450-TC; 71046-TC-FY; 80048; 80053; 80076; 81003; 81015; 82550; 82553; 83735; 84100; 84484; 85025; 85610; 87040; 87086; 87389; 87804; 93005; 93010; 99285-25; G0378; J7030

== ENCOUNTER 2020-03-24 09:53 | Emergency (ER) | payer OTHER ==
[2020-03-24 10:02] VITALS: BP 122/84; PULSE 80; TEMP 98; BMI 27.3
--- NOTE | 2020-03-24 10:08 | PDOC ---
Rapid Medical Evaluation Chief Complaint: Back Pain Time Seen by Provider: 03/24/20 10:00 Medical Evaluation: Allergies Allergy/AdvReac Type Severity Reaction Status Date / Time No Known Allergies Allergy Verified 02/09/20 14:47 03/24/20 10:00 CC: rt low back pain after lifting something at work, took mobic with good relief, hx of back pain, no other complaints, went to the drs on the 3rd and was given an injection and mobic, requesting MRI through workman comp Exam: ambulatory, no vertebral tenderness, sitting and standing without difficulty plan: toradol Discharge Disposition - Diagnosis Low back pain - Discharge Dispostion Condition at time of disposition: Stable - Referrals - Patient Instructions - Post Discharge Activity
--- NOTE | 2020-03-24 11:21 | PDOC ---
History of Present Illness - General Chief Complaint: Back Pain Stated Complaint: BACK PAIN Time Seen by Provider: 03/24/20 10:00 History Source: Patient Exam Limitations: Clinical Condition - History of Present Illness Initial Comments: 03/24/20 11:24 Patient with past medical history of chronic low back pain present with complaint of worsening pain to right gluteal region status post heavy [place] the airport. Patient reported he was lifting heavy bags and injured his lower back. Patient reported being followed by PCP for low back pain was given meloxicam by PCP and Toradol 5 days ago for chronic back pain which has been helping with back pain. Patient reported recent injury happened 3 days ago but has been taking meloxicam previously prescribed by PCP which helped with the pain. Patient came in today requesting MRI of the back done to make sure there is nothing wrong with the back. Denies radiculopathy. Report pain is localized to right mid gluteal area Occurred: reports: other (3 days) Past History - Medical History Allergies/Adverse Reactions: Allergies Allergy/AdvReac Type Severity Reaction Status Date / Time No Known Allergies Allergy Verified 02/09/20 14:47 Home Medications: Ambulatory Orders Ibuprofen [Motrin -] 400 mg PO TID 02/09/20 Ibuprofen [Motrin -] 600 mg PO Q6H PRN #24 tablet 02/09/20 Meclizine HCl [Antivert -] 12.5 mg PO TID 02/09/20 Zolpidem Tartrate [Ambien] 10 mg PO HS 02/09/20 Methocarbamol [Robaxin -] 500 mg PO BID PRN 5 Days #20 tablet MDD 2 tab 03/24/20 COPD: No Hypercholesterolemia: Yes - Immunization History Immunization Up to Date: Yes - Psycho-Social/Smoking History Smoking History: Never smoked Have you smoked in the past 12 months: No Number of Cigarettes Smoked Daily: 0 Cigars Per Day: 0 Information on smoking cessation initiated: No - Substance Abuse Hx (Audit-C & DAST Scrn) How often the patient has a drink containing alcohol: Never Score: In Men: 4 or > Positive; In Women: 3 or > Positive: 0 Screen Result (Pos requires Nsg. Audit-10AR): Negative In the last yr the pt used illegal drug/Rx for NonMed reason: No Score: Yes response is considered Positive: 0 Screen Result (Positive result requires Nsg. DAST-10): Negative Review of Systems - Review of Systems Able to Perform ROS?: Yes Is the patient limited Kazakh proficient: No Constitutional: No: Chills, Fever, Malaise HEENTM: No: Symptoms Reported, See HPI, Eye Pain, Blurred Vision, Tearing, Recent change in vision, Double Vision, Cataracts, Ear Pain, Ocular Prothesis, Ear Discharge, Nose Pain, Nose Congestion, Tinnitus, Nose Bleeding, Hearing Loss, Throat Pain, Throat Swelling, Mouth Pain, Dental Problems, Difficulty Swallowing, Mouth Swelling, Other Respiratory: No: Symptoms reported, See HPI, Cough, Orthopnea, Shortness of Breath, SOB with Exertion, SOB at Rest, Stridor, Wheezing, Productive cough, Hemoptysis, Other Cardiac (ROS): No: Symptoms Reported, See HPI, Chest Pain, Edema, Irregular Heart Rate, Lightheadedness, Palpitations, Syncope, Chest Tightness, Other ABD/GI: No: Symptoms Reported Musculoskeletal: Yes: Symptoms Reported, See HPI, Muscle Pain (Right gluteal pain) Integumentary: No: Symptoms Reported Neurological: No: Symptoms reported, Numbness, Paresthesia, Weakness All Other Systems: Reviewed and Negative *Physical Exam - Vital Signs Last Vital Signs Temp Pulse Resp BP Pulse Ox 98.0 F 80 18 122/84 100 03/24/20 10:00 03/24/20 10:00 03/24/20 10:00 03/24/20 10:00 03/24/20 10:00 - Physical Exam 03/24/20 11:27 GENERAL: Well developed, well nourished. Awake and alert. No acute distress. PULMONARY: No evidence of respiratory distress. MUSCULOSKELETAL : mild tenderness over posterior aspect of right gluteal region. No tenderness to lumbosacral area. No midline tenderness . No bony deformities EXTREMITIES: No cyanosis. No clubbing. No edema. SKIN: Warm and dry. Normal capillary refill. NEUROLOGICAL: Alert, awake, appropriate. No motor deficits in the lower extremities. Gait is normal without ataxia. PSYCHIATRIC: Cooperative. Good eye contact. Appropriate mood and affect. General Appearance: Yes: Nourished, Appropriately Dressed. No: Apparent Distress Medical Decision Making - Medical Decision Making 03/24/20 11:25 Patient with past medical history of chronic low back pain present with complaint of worsening pain to right gluteal region status post heavy lifting [place] supportive [place] the airport. Patient reported he was lifting heavy bags and injured his lower back. Patient reported being followed by PCP for low back pain was given meloxicam by PCP and Toradol 5 days ago for chronic back pain which has been helping with back pain. Patient reported recent injury happened 3 days ago but has been taking meloxicam previously prescribed by PCP which helped with the pain. Patient came in today requesting MRI of the back done to make sure there is nothing wrong with the back. Denies radiculopathy. Report pain is localized to right mid gluteal area Exam significant for mild point tenderness to right mid gluteal. No lumbosacral tenderness. No midline tenderness. Patient advised he will need to have MRI done as outpatient and will need to follow-up with PCP for referral for MRI or referred orthopedics for MRI referral. Patient reported he would rather follow with PCP to get a referral to get MRI done. Patient stable for discharge to continue home naproxen will add Robaxin as needed for spasm with PCP orthopedics follow-up Discharge - Discharge Information Problems reviewed: Yes Clinical Impression/Diagnosis: Low back pain Qualifiers: Chronicity: acute Back pain laterality: right Sciatica presence: without sciatica Qualified Code(s): M54.5 - Low back pain Condition: Stable Disposition: HOME - Admission No - Follow up/Referral Referrals: Kendrick Kurtz MD [Primary Care Provider] - Vishal Rizzo DO [Staff Physician] - - Patient Discharge Instructions Patient Printed Discharge Instructions: DI for Back Strain or Sprain Additional Instructions: Your pain is likely caused by muscle strain. Continue home meloxicam as needed for pain. Take prescribed muscle relaxer as needed for spasm. you can follow- up referred to orthopedics for referral for MRI or follow-up with your primary care for MRI referral - Post Discharge Activity
== END 2020-03-24 11:23 | disposition home or self-care (01) ==
LOC: JERFT 09:53 → SUPCPDRO 09:53 → JERFT 11:23
DX: M54.5 Low back pain (principal)
CPT/HCPCS: 99284-25

== ENCOUNTER 2020-04-15 08:26 | Day surgery (SDC) | payer OTHER ==
[2020-04-15] MEDS ORDERED: ONDANSETRON 4 MG/2 ML VIAL IVPUSH ONE (08:49)
[2020-04-15] MEDS ORDERED: ACETAMINOPHEN 1000 MG/100 ML VIAL (NON FORMULARY) IVPB ONE (08:49)
[2020-04-15] MEDS ORDERED: SODIUM CHLORIDE 1,000 ML IV STA (08:49)
--- NOTE | 2020-04-15 08:50 | PDOC ---
Rapid Medical Evaluation Chief Complaint: Pain Time Seen by Provider: 04/15/20 08:47 Medical Evaluation: Allergies Allergy/AdvReac Type Severity Reaction Status Date / Time No Known Allergies Allergy Verified 04/15/20 08:30 Vital Signs Temp Pulse Resp BP Pulse Ox 97.8 F 68 18 134/102 H 99 04/15/20 08:27 04/15/20 08:27 04/15/20 08:27 04/15/20 08:27 04/15/20 08:27 04/15/20 08:47 Pt presents for one day of R sided Flank pain starting last night. States that the pain is colicky in nature. Also admits nausea. Denies vomiting, dysuria, and hematuria. Exam: R sided CVA Tenderness, RUQ pain Orders: labs, IVF Pt to proceed to the ER for further evaluation Discharge Disposition - Diagnosis Flank pain - Referrals - Patient Instructions - Post Discharge Activity
[2020-04-15] MEDS ORDERED: ACETAMINOPHEN INJECTION 100 ML IVPB ONE (09:08)
[2020-04-15 09:38] LABS: BASO % 0.6 % (0-2.0); EOS % 1.1 % (0-4.5); HEMATOCRIT 46.7 % (35.4-49); LYMPH % 34.2 % (8-40); MCH 29.7 pg (25.7-33.7); MCHC 34.3 g/dl (32.0-35.9); MEAN CELL VOLUME 86.7 fl (80-96); MEAN PLT VOLUME 7.4 fl (7.5-11.1); MONO % 6.8 % (3.8-10.2); NEUT % 57.3 % (42.8-82.8); PLATELET COUNT 305 K/MM3 (134-434); RBC 5.39 M/mm3 (4.00-5.60); RDW 13.7 % (11.9-15.9); WHITE BLOOD COUNT 9.5 K/mm3 (4.0-10.0)
--- NOTE | 2020-04-15 09:42 | PDOC ---
Documentation entered by Onesimo Jerez SCRIBE, acting as scribe for Cody Gallo MD. Cody Gallo MD: This documentation has been prepared by the Meri knutson Angel, SCRIBE, under my direction and personally reviewed by me in its entirety. I confirm that the documentation accurately reflects all work, treatment, procedures, and medical decision making performed by me. History of Present Illness - General Chief Complaint: Pain Stated Complaint: RT. SIDE PAIN Time Seen by Provider: 04/15/20 08:47 History Source: Patient Exam Limitations: No Limitations - History of Present Illness Initial Comments: 04/15/20 09:35 The patient is a 39 year old male with a significant past medical history of chronic LBP who presents to the ED with right flank and right lower quadrant abdominal pain. The patient states the pain started yesterday in his right lower abdomen and radiated to his right flank. Pt then started feeling nauseous but denies vomiting. The patient states the pain was not too concerning yesterday but today is worse. The patient notes having pain like this in the past but did not seek medical attention as it was not as severe. The patient denies vomiting, fever, dysuria, hematuria or any abdominal surgical history. Family hx: Kidney stones. Past History - Medical History Allergies/Adverse Reactions: Allergies Allergy/AdvReac Type Severity Reaction Status Date / Time No Known Allergies Allergy Verified 04/15/20 08:30 Home Medications: Ambulatory Orders Ibuprofen [Motrin -] 400 mg PO TID 02/09/20 Ibuprofen [Motrin -] 600 mg PO Q6H PRN #24 tablet 02/09/20 Meclizine HCl [Antivert -] 12.5 mg PO TID 02/09/20 Zolpidem Tartrate [Ambien] 10 mg PO HS 02/09/20 Methocarbamol [Robaxin -] 500 mg PO BID PRN 5 Days #20 tablet MDD 2 tab 03/24/20 COPD: No Hypercholesterolemia: Yes Other medical history: pinched nerve in his neck - Immunization History Immunization Up to Date: Yes - Psycho-Social/Smoking History Smoking History: Never smoked Have you smoked in the past 12 months: No Number of Cigarettes Smoked Daily: 0 Cigars Per Day: 0 - Substance Abuse Hx (Audit-C & DAST Scrn) How often the patient has a drink containing alcohol: Monthly or less Score: In Men: 4 or > Positive; In Women: 3 or > Positive: 1 Screen Result (Pos requires Nsg. Audit-10AR): Negative Review of Systems - Review of Systems Able to Perform ROS?: Yes Comments:: 04/15/20 09:39 GENERAL/CONSTITUTIONAL: No fever or chills. No weakness. HEAD, EYES, EARS, NOSE AND THROAT: No change in vision. No ear pain or discharge. No sore throat. CARDIOVASCULAR: No chest pain, no shortness of breath, no loss of consciousness RESPIRATORY: No cough, wheezing, or hemoptysis. GASTROINTESTINAL: +Nausea. No vomiting, diarrhea or constipation. GENITOURINARY: No dysuria, frequency, or change in urination. MUSCULOSKELETAL: +Right lower quadrant abdominal pain radiating to right lower back. No neck pain. SKIN: No rash NEUROLOGIC: No vertigo, no change in strength/sensation. ENDOCRINE: No increased thirst. No abnormal weight change. HEMATOLOGIC/LYMPHATIC: No anemia, easy bleeding, or history of blood clots. ALLERGIC/IMMUNOLOGIC: No hives or skin allergy. *Physical Exam - Vital Signs Last Vital Signs Temp Pulse Resp BP Pulse Ox 97.8 F 68 18 134/102 H 99 04/15/20 08:27 04/15/20 08:27 04/15/20 08:27 04/15/20 08:27 04/15/20 08:27 - Physical Exam 04/15/20 09:54 "GENERAL: Awake, alert, and fully oriented, in no acute distress. HEAD: No signs of trauma EYES: PERRLA, EOMI, sclera anicteric, conjunctiva clear ENT: Auricles normal inspection, hearing grossly normal, nares patent, oropharynx clear without exudates. Moist mucosa NECK: Nontender, no stepoffs, Normal ROM, supple, no lymphadenopathy, JVD, or masses LUNGS: Breath sounds equal, clear to auscultation bilaterally. No wheezes, and no crackles HEART: Regular rate and rhythm, normal S1 and S2, no murmurs, rubs or gallops ABDOMEN: + RLQ pain, normoactive bowel sounds. No guarding, no rebound. No masses EXTREMITIES: Normal range of motion, no edema. No clubbing or cyanosis. No cords, erythema, or tenderness NEUROLOGICAL: Cranial nerves II through XII intact. 5/5 strength and sensation in all extremities, Normal speech, normal gait, normal cerebellar function SKIN: Warm, Dry, normal turgor, no rashes or lesions noted. ED Treatment Course - LABORATORY CBC & Chemistry Diagram: 04/15/20 09:15 04/15/20 09:15 - Medications Given in the ED: ED Medications Discontinued Medications Generic Name Dose Route Start Last Admin Trade Name Kierra PRN Reason Stop Dose Admin Acetaminophen 1,000 mg 04/15/20 08:49 04/15/20 09:24 Ofirmev Injection - IVPB 04/15/20 08:50 1,000 mg ONCE ONE Administration Ondansetron HCl 4 mg 04/15/20 08:49 04/15/20 09:25 Zofran Injection IVPUSH 04/15/20 08:50 4 mg ONCE ONE Administration Medical Decision Making - Medical Decision Making 04/15/20 09:54 39 M with RLQ and R flank pain. Exam with + RLQ tenderness. Possible renal colic vs appendicitis. ? biliary colic. - Labs - UA - CTAP - IVF, pain control 04/15/20 16:05 CT shows gallbladder thickening. US obtained, radiologist recommends HIDA scan GI consulted GI recommending surgery consult 04/15/20 16:21 Dr. Hernandez in ED to evaluate pt, will likely take to OR tomorrow Discharge - Discharge Information Problems reviewed: Yes Clinical Impression/Diagnosis: Flank pain, Abdominal pain, Cholecystitis - Admission Yes - Follow up/Referral Referrals: Jordan Ramirez MD [Primary Care Provider] - - Patient Discharge Instructions - Post Discharge Activity
[2020-04-15 09:51] LABS: INR 0.94 (0.83-1.09); PROTHROMBIN TIME (PATIENT) 11.1 SEC (9.7-13.0)
[2020-04-15 10:12] LABS: ALBUMIN 4.1 g/dl (3.4-5.0); BILIRUBIN,TOTAL 0.4 mg/dL (0.2-1); BLOOD UREA NITROGEN 21.6 mg/dL (7-18); CALCIUM 9.1 mg/dL (8.5-10.1); CREATININE 0.9 mg/dL (0.55-1.3); POTASSIUM 4.1 mmol/L (3.5-5.1); TOT PROT 7.6 g/dl (6.4-8.2)
[2020-04-15 10:41] LABS: PH,URINE 5.5 (5.0-8.0); URINE APPEARANCE CLEAR; URINE BILIRUBIN NEGATIVE (NEGATIVE); URINE COLOR YELLOW; URINE GLUCOSE (UA) NEGATIVE (NEGATIVE); URINE KETONE TRACE (NEGATIVE); URINE LEUK ESTERASE NEGATIVE (NEGATIVE); URINE NITRITE NEGATIVE (NEGATIVE); URINE PROTEIN NEGATIVE (NEGATIVE); URINE UROBILINOGEN 0.2 mg/dL (0.2-1.0)
--- NOTE | 2020-04-15 15:09 | CON.GI ---
Consult Consult Specialty:: GI - Shayla Rueda Referred by:: ER Reason for Consultation:: RUQ pain x 1 day w/ nausea - History of Present Illness Chief Complaint: RUQ pain History of Present Illness: Called to ying 39 year old male with a PMHx of chronic LBP, presents to [facility] ED w/ c/o with right flank and RLQ abdominal pain which started last night around 23:30hrs. RLQ and migrated to his RUQ/flank. Associated with nausea but denies vomiting. He states that this is his third episode yet this is the first time he is seeking medical attention. Last meal eaten was dinner at 18:30hrs last night (chicken wings). Tired to alleviate pain with Motrin 600mg PO x1 without relief. Denies CP, palpitations, SOB or WINTER. Denies fever, chills, vomiting. Denies dysuria or hematuria. Denies constipation, melena or hematochazia. Denies post- prandial pain. Denies family history of colon CA. Never had a colonoscopy. - History Source History Provided By: Patient, Medical Record Limitations to Obtaining History: No Limitations - Past Medical History Gastrointestinal: No: Cancer, Constipation, Crohn's Disease, Diverticulitis, Gas tritis, GERD, GI Bleed, Hiatal Hernia, Irritable Bowel Disease, Peptic Ulcer Disease, Ulcerative Colitis Renal/: No: Hematuria, Renal Calculi Heme/Onc: No: Bleeding Disorder, Cancer Musculoskeletal: Yes: Chronic low back pain - Past Surgical History Past Surgical History: Yes: None - Alcohol/Substance Use Hx Alcohol Use: No - Smoking History Smoking history: Never smoked Have you smoked in the past 12 months: No Aproximately how many cigarettes per day: 0 - Social History ADL: Independent <Bryon Munoz P - Last Filed: 04/15/20 16:21> Home Medications <Bryon Munoz - Last Filed: 04/15/20 16:21> <Shayla Rueda - Last Filed: 04/15/20 18:22> - Allergies Allergies/Adverse Reactions: Allergies Allergy/AdvReac Type Severity Reaction Status Date / Time No Known Allergies Allergy Verified 04/15/20 08:30 - Home Medications Home Medications: Ambulatory Orders Ibuprofen [Motrin -] 400 mg PO TID 02/09/20 Ibuprofen [Motrin -] 600 mg PO Q6H PRN #24 tablet 02/09/20 Meclizine HCl [Antivert -] 12.5 mg PO TID 02/09/20 Zolpidem Tartrate [Ambien] 10 mg PO HS 02/09/20 Methocarbamol [Robaxin -] 500 mg PO BID PRN 5 Days #20 tablet MDD 2 tab 03/24/20 Family Medical History Family Hx Cardiac Disorders: Sister (Heart murmur) Family Hx Respiratory Disorders: Mother (( in a fire) Asthma), Sister (Asthma) Other Family History: Father - cataracts <Bryon Munoz P - Last Filed: 04/15/20 16:21> Review of Systems - Review of Systems Constitutional: reports: No Symptoms Eyes: reports: No Symptoms HENT: reports: No Symptoms Neck: reports: No Symptoms Cardiovascular: reports: No Symptoms Respiratory: reports: No Symptoms Gastrointestinal: reports: Abdominal Pain, Nausea. denies: Bloating, Constipation, Diarrhea, Dysphagia, Indigestion, Melena, Rectal Bleeding, Vomiting Genitourinary: reports: No Symptoms Musculoskeletal: reports: No Symptoms (Chronic LBP) Integumentary: reports: No Symptoms Neurological: reports: No Symptoms Endocrine: reports: No Symptoms Hematology/Lymphatic: reports: No Symptoms Psychiatric: reports: No Symptoms <Bryon Munoz P - Last Filed: 04/15/20 16:21> Physical Exam-GI Vital Signs: Vital Signs Temperature 98.7 F 04/15/20 10:25 Pulse Rate 67 04/15/20 10:25 Respiratory Rate 18 04/15/20 08:27 Blood Pressure 129/71 04/15/20 10:25 O2 Sat by Pulse Oximetry (%) 100 04/15/20 10:25 Constitutional: Yes: Well Nourished, No Distress, Calm Eyes: Yes: WNL, Conjunctiva Clear, EOM Intact HENT: Yes: WNL, Atraumatic, Normocephalic Neck: Yes: WNL, Supple, Trachea Midline Cardiovascular: Yes: WNL, Regular Rate and Rhythm Respiratory: Yes: WNL, Regular, CTA Bilaterally Gastrointestinal Inspection: Yes: WNL ...Auscultate: Yes: Normoactive Bowel Sounds ...Palpate: Yes: Tenderness (RUQ, + Gonzalez's), Tenderness, Epigastium ...Rectal Exam: Yes: Deferred Genitourinary: Yes: WNL Musculoskeletal: Yes: WNL Extremities: Yes: WNL Edema: No Peripheral Pulses WNL: Yes Neurological: Yes: WNL, Alert, Oriented ...Motor Strength: WNL Psychiatric: Yes: WNL, Alert, Oriented Labs: CBC, BMP 04/15/20 09:15 04/15/20 09:15 Hepatic Panel Total Bilirubin 0.4 mg/dL (0.2-1) 04/15/20 09:15 AST 21 U/L (15-37) 04/15/20 09:15 ALT 42 U/L (13-61) 04/15/20 09:15 Alkaline Phosphatase 117 U/L (45-117) 04/15/20 09:15 Albumin 4.1 g/dl (3.4-5.0) 04/15/20 09:15 INR, PTT INR 0.94 (0.83-1.09) 04/15/20 09:15 Urine Test Results Urine Color Yellow 04/15/20 09:05 Urine Appearance Clear 04/15/20 09:05 Urine pH 5.5 (5.0-8.0) 04/15/20 09:05 Ur Specific [place] 1.037 (1.010-1.035) H 04/15/20 09:05 Urine Protein Negative (NEGATIVE) 04/15/20 09:05 Urine Glucose (UA) Negative (NEGATIVE) 04/15/20 09:05 Urine Ketones Trace (NEGATIVE) H 04/15/20 09:05 Urine Blood Negative (NEGATIVE) 04/15/20 09:05 Urine Nitrite Negative (NEGATIVE) 04/15/20 09:05 Urine Bilirubin Negative (NEGATIVE) 04/15/20 09:05 Ur Leukocyte Esterase Negative (NEGATIVE) 04/15/20 09:05 <Bryon Munoz P - Last Filed: 04/15/20 16:21> Vital Signs: Vital Signs Temperature 98.2 F 04/15/20 17:07 Pulse Rate 85 04/15/20 17:07 Respiratory Rate 18 04/15/20 08:27 Blood Pressure 126/89 04/15/20 17:07 O2 Sat by Pulse Oximetry (%) 99 04/15/20 17:07 Labs: CBC, BMP 04/15/20 09:15 07/29/20 09:15 INR, PTT INR 0.94 (0.83-1.09) 04/15/20 09:15 <Shayla Rueda - Last Filed: 04/15/20 18:22> Imaging - Results Cat Scan: Report Reviewed (Thick walled GB w/ trace pericholecystic fluid) Ultrasound: Report Reviewed (Contracted and thick walled GB w/ trace pericholecystic fluid) <Bryon Munoz P - Last Filed: 04/15/20 16:21> Problem List - Problems (1) Acalculous cholecystitis Code(s): K81.9 - CHOLECYSTITIS, UNSPECIFIED (2) RUQ abdominal pain Code(s): R10.11 - RIGHT UPPER QUADRANT PAIN (3) Low back pain Code(s): M54.5 - LOW BACK PAIN Qualifiers: Chronicity: acute Back pain laterality: right Sciatica presence: without sciatica Qualified Code(s): M54.5 - Low back pain <Bryon Munoz P - Last Filed: 04/15/20 16:21> Assessment/Plan 39 yo male admitted with 3rd episode of RUQ pain (first time he's seeking medical attention for it). While in the ED he had the following imaging studies (ABD CT & U/S) which both show a contracted gallbladder, sludge, pericholecystic fluid, no biliary ductal dilation. No leukocytosis. Normal LFTs. 1. NPO 2. IVF 3. GI PPx 4. IV ABX 5. HIDA Scan (ordered) 6. Covid pending; Isolation precautions 7. General Surgery Consult - Dr. Hernandez for possible Lap Aneta 04/16/20 8. Tylenol for pain and or fever > 100.3F Above plan discussed with Dr. Rueda and agrees. <Bryon Munoz P - Last Filed: 04/15/20 16:21> pt seen and examined agree with assessment and plan as outlined above Impression: Suspected acute cholecystitis - clinically Rec: abx npo / ivf's hida scan surgery evaluation <Shayla Rueda - Last Filed: 04/15/20 18:22>
[2020-04-15] MEDS ORDERED: PIPERACILLIN/TAZOB 4.5 GM 4.5 GM/100 ML BAG IVPB ONE ×2 (16:21→16:37)
[2020-04-15] MEDS ORDERED: morphine CARPU-JECT 4 MG/1 ML DISP.SYRIN IVPUSH ONE (16:52)
[2020-04-15] MEDS ORDERED: morphine SULFATE 4 MG/ML VIAL ONE (16:59)
--- NOTE | 2020-04-15 17:20 | CONSULT ---
- Consultation REQUESTING PROVIDER: Gordo Gallo MD CONSULT REQUEST: We have been asked to surgically evaluate this patient for a bdominal pain. PCP: HISTORY OF PRESENT ILLNESS: CTSP who is a 39 year old male who presents to the ED with right flank and right upper quadrant and epigastric colicky abdominal pain. The patient states the pain started yesterday in his right upper abdomen and epigastric area and radiated to his right flank. Pt then started feeling nauseous but denies vomiting. The patient states the pain was not too concerning yesterday but today is worse. The patient notes having pain like this in the past but did not seek medical attention as it was not as severe. He denies any other GI/ c/o's. He had a recent IOD; [place]. He is unsure if it is related to food intake but it is definitely post prandial. Pain has improved since he has been in the ER. PMHx: LBP PSHx: eye surgery Home Medications Medication Instructions Recorded Ibuprofen [Motrin -] 400 mg PO TID 02/09/20 Ibuprofen [Motrin -] 600 mg PO Q6H PRN #24 tablet 02/09/20 Meclizine HCl [Antivert -] 12.5 mg PO TID 02/09/20 Zolpidem Tartrate [Ambien] 10 mg PO HS 02/09/20 Methocarbamol [Robaxin -] 500 mg PO BID PRN 5 Days #20 03/24/20 tablet MDD 2 tab Allergies Allergy/AdvReac Type Severity Reaction Status Date / Time No Known Allergies Allergy Verified 04/15/20 08:30 REVIEW OF SYSTEMS: CONSTITUTIONAL: Absent: fever, chills, diaphoresis, generalized weakness, malaise, loss of appetite, weight change CARDIOVASCULAR: Absent: chest pain, syncope, palpitations, irregular heart rate, lightheadedness, peripheral edema RESPIRATORY: Absent: cough, shortness of breath, dyspnea with exertion, wheezing, stridor, hemoptysis GASTROINTESTINAL: Present: abdominal pain, nausea, Absent:vomiting, diarrhea, constipation, melena, hematochezia GENITOURINARY: Absent: dysuria, frequency, urgency, hesitancy, hematuria, flank pain, genital pain MUSCULOSKELETAL: Present: myalgia, arthralgia, joint swelling, back pain, neck pain SKIN: Absent: rash, itching, pallor HEMATOLOGIC/IMMUNOLOGIC: Absent: easy bleeding, easy bruising, lymphadenopathy NEUROLOGIC: Absent: headache, focal weakness, paresthesias, dizziness, unsteady gait, seiz ure, mental status changes, bladder or bowel incontinence PSYCHIATRIC: Absent: anxiety, depression, suicidal or homicidal ideation, hallucinations. PHYSICAL EXAM: GENERAL: Awake, alert, and fully oriented, in no acute distress. HEAD: Normal with no signs of trauma. EYES: sclera anicteric, conjunctiva clear. NECK: Normal ROM, supple without lymphadenopathy, JVD, or masses. LUNGS: Clear to auscultation bilat anteriorly. No wheezes, and no crackles. No accessory muscle use. HEART: Regular rate and rhythm. No murmurs ABDOMEN: Soft, minimal RUQ tenderness, not distended, normoactive bowel sounds, no guarding, no rebound, no masses. No organomegaly. No hernias. MUSCULOSKELETAL: Normal ROM at all joints. No bony deformities or tenderness. No CVA tenderness. UPPER EXTREMITIES: 2+ pulses, warm, well-perfused. No cyanosis. Cap refill <2 seconds. No peripheral edema. LOWER EXTREMITIES: 2+ pulses, warm, well-perfused. No calf tenderness. No peripheral edema. NEUROLOGICAL: Normal speech, gait not observed. PSYCH: Cooperative. Good eye contact. Appropriate mood and affect. SKIN: Warm, dry, normal turgor, no rashes or lesions noted. Vital Signs Temperature 98.2 F 04/15/20 17:07 Pulse Rate 85 04/15/20 17:07 Respiratory Rate 18 04/15/20 08:27 Blood Pressure 126/89 04/15/20 17:07 O2 Sat by Pulse Oximetry (%) 99 04/15/20 17:07 Lab Results WBC 9.5 K/mm3 (4.0-10.0) 04/15/20 09:15 RBC 5.39 M/mm3 (4.00-5.60) 04/15/20 09:15 Hgb 16.0 GM/dL (11.7-16.9) 04/15/20 09:15 Hct 46.7 % (35.4-49) 04/15/20 09:15 MCV 86.7 fl (80-96) 04/15/20 09:15 MCHC 34.3 g/dl (32.0-35.9) 04/15/20 09:15 RDW 13.7 % (11.9-15.9) 04/15/20 09:15 Plt Count 305 K/MM3 (134-434) 04/15/20 09:15 INR 0.94 (0.83-1.09) 04/15/20 09:15 Sodium 141 mmol/L (136-145) 04/15/20 09:15 Potassium 4.1 mmol/L (3.5-5.1) 04/15/20 09:15 Chloride 108 mmol/L (98-107) H 04/15/20 09:15 Carbon Dioxide 24 mmol/L (21-32) 04/15/20 09:15 Anion Gap 9 MMOL/L (8-16) 04/15/20 09:15 BUN 21.6 mg/dL (7-18) H 04/15/20 09:15 Creatinine 0.9 mg/dL (0.55-1.3) 04/15/20 09:15 Random Glucose 95 mg/dL (74-106) 04/15/20 09:15 Calcium 9.1 mg/dL (8.5-10.1) 04/15/20 09:15 CT a/p and limited US reviewed; reports and images. IMP: biliary colic; possible acalculous cholecystitis PLAN: Suggest NPO/IVF/IVAB's and lap isaac possible open 04/16/2020; hx. and PE and imaging are concerning for symptomatic gallbladder disease w/the presence of sludge and edema of thee gallbladder and pericholecystic fluid; rr/b/t/a's to surgery d/w the patient and he wishes to proceed. Cody Hernandez MD FACS
--- NOTE | 2020-04-15 18:45 | PN ---
Teaching Attending Note Name of Resident: Matheus Fallon ATTENDING PHYSICIAN STATEMENT I saw and evaluated the patient. I reviewed the resident's note and discussed the case with the resident. I agree with the resident's findings and plan as documented. SUBJECTIVE: abd pain 39 y/o male with hx of chronic back and neck pain presents after having his 3rd and worst wpisode over the course of a month of ruq pain associated with nasuea. States he has felt this pain in the past but it usually resolves. Yesterday he rreports having a heavy meal of wings and fries,w ent to bed and was awakend with excruciating ruq pain and nausea. COuldnt sleep thru the night, tried motrin, tried walking thought it may be gas but when pain didnt resolve he came to the ED for further eval. No recent illnesses, no cp, sob. f/c no diarrhea or urinary issues Denies any right shoulder pain PMHX: chronic back, neck pain, vertigo PSHX: eye surgery as a child Meds: gabapentin 600mg qhs Allergies: NKDA Social Hx: neg for tobacco or drug use, but reports drinking on the weekends 12 bottles of alcohol Family Hx: denies any immdiate family hx of cad, cva, or cancer ROS: as per HPI otherwise all other systems reviewed and are negative OBJECTIVE: Vital Signs Temperature 98.2 F 04/15/20 17:07 Pulse Rate 85 04/15/20 17:07 Respiratory Rate 18 04/15/20 08:27 Blood Pressure 126/89 04/15/20 17:07 O2 Sat by Pulse Oximetry (%) 99 04/15/20 17:07 GEN: Pt A and o, talkative, NAD HEENT: NC/aT, EOMI, oropharynx - clear, slightly crowded in psot pharynx Neck: supple CV: Pos S1, S2, RRR Chest: CTA sunni, no rhonchi, rales, wheezes Abd: pos murphys signs, ruq tenderness to palptaion, soft , nd, pos bs Ext: no c/c/e Skin: no rashes EKG: pending CXR: pending CT abd/pelvis: pos pericholecystic fluid thick walled gb Abd sono: pos pericholecystic fluid, sludge ASSESSMENT AND PLAN: 39 y/o male with above hx admitted with cholecystitis versus biliary colic *RUQ abs pain -- acalculus cholecystitis/biliary colic? _ GI and Surgery evals noted, for possible oR tomorrow Keep NPO pos tmn Check ekg/cxr (still not done) - coags. h/h electrolytes stable - ivf, analgesics *chronic billy pain - cont gabapentin * dvt prophy - lovenox , hold am dose COVID swab done and pending
--- NOTE | 2020-04-15 18:50 | HP ---
CHIEF COMPLAINT: Colicky RUQ and Right flank pain with nausea PCP: Jordan Dow MD HISTORY OF PRESENT ILLNESS: 39 year old male patient with past medical history that includes: chronic low back pain, HLD, history of vertigo, pinched nerve in left shoulder, and eye surgery at 7 years of age, who presented to the emergency room with right flank and right upper quadrant colicky pain with nausea and a mild headache that began last night. The patient stated that this is the 3rd time that he has experience d these symptoms of pain and nausea, but that the other two times were less severe and resolved on their own. He denies any vomiting. He has tried taking 1 pill of Motrin with no relief. The patient denies referred pain in his right shoulder. Gonzalez's sign was positive. Recent Travel: PAST MEDICAL HISTORY: chronic low back pain, HLD, history of vertigo, pinched nerve in left shoulder PAST SURGICAL HISTORY: Eye surgery at the age of 7 Social History: Smoking: Denies Alcohol: "Social" drinking. 2 bottles of beer on the weekends. Drugs: Denies Allergies No Known Allergies Allergy (Verified 04/15/20 08:30) HOME MEDICATIONS: Home Medications Medication Instructions Recorded Ibuprofen [Motrin -] 400 mg PO TID 02/09/20 Ibuprofen [Motrin -] 600 mg PO Q6H PRN #24 tablet 02/09/20 Meclizine HCl [Antivert -] 12.5 mg PO TID 02/09/20 Zolpidem Tartrate [Ambien] 10 mg PO HS 02/09/20 Methocarbamol [Robaxin -] 500 mg PO BID PRN 5 Days #20 03/24/20 tablet MDD 2 tab REVIEW OF SYSTEMS CONSTITUTIONAL: Absent: fever, chills HEENT: itchy mouth CARDIOVASCULAR: chest pain over the right lower rib cage RESPIRATORY: shortness of breath with the pain GASTROINTESTINAL: RUQ and right flank pain, nausea Absent: vomiting, diarrhea, constipation, melena, hematochezia GENITOURINARY: Absent: dysuria, hematuria MUSCULOSKELETAL: left neck pain from pinched nerve NEUROLOGIC: headache yesterday PHYSICAL EXAMINATION Vital Signs - 24 hr 04/15/20 04/15/20 04/15/20 08:27 10:25 17:07 Temperature 97.8 F 98.7 F 98.2 F Pulse Rate 68 Pulse Rate [ 67 85 Left] Respiratory 18 Rate Blood Pressure 134/102 H Blood Pressure 129/71 126/89 [Right] O2 Sat by Pulse 99 100 99 Oximetry (%) GENERAL: Awake, alert, and fully oriented, in no acute distress. HEAD: Normal with no signs of trauma. EYES: Extraocular movements intact. No lid lag. EARS, NOSE, THROAT: Ears normal, nares patent, oropharynx clear without exu dates. Moist mucous membranes. NECK: Normal range of motion, supple without lymphadenopathy, JVD, or masses. LUNGS: Breath sounds equal, clear to auscultation bilaterally. No wheezes, and no crackles. No accessory muscle use. HEART: Regular rate and rhythm, normal S1 and S2 without murmur, rub or gallop. ABDOMEN: Soft, tender to RUQ and RLQ, not distended, hypoactive bowel sounds, no guarding, no rebound, no masses. + Gonzalez's sign. No referred pain to the right shoulder. MUSCULOSKELETAL: Normal range of motion at all joints. No bony deformities or tenderness. UPPER EXTREMITIES: 2+ pulses, warm, well-perfused. No cyanosis. No clubbing. No peripheral edema. LOWER EXTREMITIES: 2+ pulses, warm, well-perfused. No calf tenderness. No peripheral edema. NEUROLOGICAL: Normal speech. Normal gait. PSYCHIATRIC: Cooperative. Good eye contact. Appropriate mood and affect. SKIN: Warm, dry, normal turgor, normal capillary refill. Erythematous kim on right flank which patient says is from leaning on the rails of the bed. Laboratory Results - last 24 hr 04/15/20 04/15/20 04/15/20 09:05 09:15 09:15 WBC 9.5 RBC 5.39 Hgb 16.0 Hct 46.7 MCV 86.7 MCH 29.7 MCHC 34.3 RDW 13.7 Plt Count 305 MPV 7.4 L Absolute Neuts (auto) 5.5 Neutrophils % 57.3 Lymphocytes % 34.2 D Monocytes % 6.8 Eosinophils % 1.1 D Basophils % 0.6 Nucleated RBC % 0 PT with INR 11.10 INR 0.94 Sodium Potassium Chloride Carbon Dioxide Anion Gap BUN Creatinine Est GFR (CKD-EPI)AfAm Est GFR (CKD-EPI)NonAf Random Glucose Calcium Total Bilirubin AST ALT Alkaline Phosphatase Total Protein Albumin Lipase Urine Color Yellow Urine Appearance Clear Urine pH 5.5 Ur Specific [place] 1.037 H Urine Protein Negative Urine Glucose (UA) Negative Urine Ketones Trace H Urine Blood Negative Urine Nitrite Negative Urine Bilirubin Negative Urine Urobilinogen 0.2 Ur Leukocyte Esterase Negative 04/15/20 09:15 WBC RBC Hgb Hct MCV MCH MCHC RDW Plt Count MPV Absolute Neuts (auto) Neutrophils % Lymphocytes % Monocytes % Eosinophils % Basophils % Nucleated RBC % PT with INR INR Sodium 141 Potassium 4.1 Chloride 108 H Carbon Dioxide 24 Anion Gap 9 BUN 21.6 H Creatinine 0.9 Est GFR (CKD-EPI)AfAm 123.39 Est GFR (CKD-EPI)NonAf 106.46 Random Glucose 95 Calcium 9.1 Total Bilirubin 0.4 AST 21 ALT 42 Alkaline Phosphatase 117 Total Protein 7.6 Albumin 4.1 Lipase 129 Urine Color Urine Appearance Urine pH Ur Specific [place] Urine Protein Urine Glucose (UA) Urine Ketones Urine Blood Urine Nitrite Urine Bilirubin Urine Urobilinogen Ur Leukocyte Esterase ASSESSMENT/PLAN: 39 year old male patient with past medical history that includes: chronic low back pain, HLD, history of vertigo, pinched nerve in left shoulder, and eye surgery at 7 years of age, who presented to the emergency room with right flank and right upper quadrant colicky pain with nausea that began last night. 1. Cholecystitis - Pain in the right flank and right upper quadrant with positive Allison's sign - CT and Ultrasound shows a thickened gallbladder with trace pericholecystic fluid - ECG - NPO after midnight - IV fluids - IV Antibiotics - COVID pending - Morphine for pain - Surgery possibly tomorrow DVT PPx - SCDs. Possible surgery tomorrow. Dispo - Possible surgery tomorrow Family Medical History Other Family History: Stroke - Uncle Visit type - Emergency Visit Emergency Visit: Yes Care time: The patient presented to the Emergency Department on the above date and was hospitalized for further evaluation of their emergent condition. - New Patient This patient is new to me today: Yes Date on this admission: 04/15/20 - Critical Care Critical Care patient: No ATTENDING PHYSICIAN STATEMENT I saw and evaluated the patient. I reviewed the resident's note and discussed the case with the resident. I agree with the resident's findings and plan as documented. SUBJECTIVE: OBJECTIVE: ASSESSMENT AND PLAN:
[2020-04-15] MEDS: AMPICILLIN NA/SULBACTAM NA 3 GM in SODIUM CHLORIDE 100 ML IVPB SCH (21:25)
[2020-04-15] MEDS: SODIUM CHLORIDE 1,000 ML IV SCH (21:25)
[2020-04-16] MEDS: AMPICILLIN NA/SULBACTAM NA 3 GM in SODIUM CHLORIDE 100 ML IVPB SCH ×3 (02:24→15:10)
[2020-04-16 04:02] VITALS: BMI 27.2
[2020-04-16 06:40] LABS: PH,URINE 5.5 (5.0-8.0); URINE APPEARANCE CLEAR; URINE BILIRUBIN NEGATIVE (NEGATIVE); URINE COLOR YELLOW; URINE GLUCOSE (UA) NEGATIVE (NEGATIVE); URINE KETONE NEGATIVE (NEGATIVE); URINE LEUK ESTERASE NEGATIVE (NEGATIVE); URINE NITRITE NEGATIVE (NEGATIVE); URINE PROTEIN NEGATIVE (NEGATIVE)
[2020-04-16 08:00] LABS: INR 0.97 (0.83-1.09); PROTHROMBIN TIME (PATIENT) 11.5 SEC (9.7-13.0)
[2020-04-16 08:01] LABS: HEMATOCRIT 42.8 % (35.4-49); HEMOGLOBIN 14.3 GM/dL (11.7-16.9); MCH 29.1 pg (25.7-33.7); MCHC 33.5 g/dl (32.0-35.9); MEAN CELL VOLUME 86.9 fl (80-96); MEAN PLT VOLUME 7.8 fl (7.5-11.1); PLATELET COUNT 271 K/MM3 (134-434); RBC 4.92 M/mm3 (4.00-5.60); RDW 14.1 % (11.9-15.9)
[2020-04-16 08:21] LABS: ALBUMIN 3.4 g/dl (3.4-5.0); BILIRUBIN,TOTAL 0.8 mg/dL (0.2-1); BLOOD UREA NITROGEN 14.9 mg/dL (7-18); CALCIUM 8.5 mg/dL (8.5-10.1); CREATININE 0.9 mg/dL (0.55-1.3); MAGNESIUM 2.3 mg/dL (1.8-2.4); PHOSPHOROUS 3.9 mg/dL (2.5-4.9); POTASSIUM 4.4 mmol/L (3.5-5.1); TOT PROT 6.4 g/dl (6.4-8.2)
--- NOTE | 2020-04-16 10:17 | PN ---
Progress Note, Physician Chief Complaint: Cholecystitis History of Present Illness: NAD pain 12/26 Denies any N/V/D Just returned from HIDA scan - Current Medication List Current Medications: Active Medications Sodium Chloride (Normal Saline -) 1,000 mls @ 100 mls/hr IV ASDIR JOSIE Last Admin: 04/15/20 21:25 Dose: 100 mls/hr Documented by: Ampicillin Sodium/Sulbactam (Sodium 3 gm/ Sodium Chloride) 100 mls @ 200 mls/hr IVPB Q6H-IV JOSIE Last Admin: 04/16/20 02:24 Dose: 200 mls/hr Documented by: Morphine Sulfate (Morphine Sulfate) 2 mg IVPUSH Q4H PRN PRN Reason: PAIN LEVEL 7 - 10 - Objective Vital Signs: Vital Signs Temperature 97.6 F 04/16/20 07:54 Pulse Rate 56 L 04/16/20 07:54 Respiratory Rate 18 04/16/20 08:54 Blood Pressure 97/56 L 04/16/20 07:54 O2 Sat by Pulse Oximetry (%) 98 04/16/20 08:54 Constitutional: Yes: Well Nourished, No Distress, Calm Cardiovascular: Yes: Regular Rate and Rhythm Respiratory: Yes: Regular, CTA Bilaterally Gastrointestinal: Yes: Abdomen, Obese, Hypoactive Bowel Sounds, Tenderness (diffuse) Genitourinary: Yes: WNL Musculoskeletal: Yes: WNL Extremities: Yes: WNL Edema: No Peripheral Pulses WNL: Yes Neurological: Yes: Alert, Oriented Psychiatric: Yes: Alert, Oriented Labs: CBC, BMP 04/16/20 06:25 04/16/20 06:25 INR, PTT INR 0.97 (0.83-1.09) 04/16/20 06:25 Problem List - Problems (1) Abdominal pain Problems reviewed: Yes Code(s): R10.9 - UNSPECIFIED ABDOMINAL PAIN (2) Cholecystitis Assessment/Plan: -CTAP: Thick walled gallbladder with trace pericholecystic fluid. -U/S Abd:The gallbladder is largely contracted and thick walled with a trace pericholecystic fluid present. There is a small amount of biliary sludge within the gallbladder lumen. -HIDA scan pending -Empiric IV abx -IVF -NPO -Surgical consult appreciated -Morphine for pain PRN -Medically stable for OR Problems reviewed: Yes Code(s): K81.9 - CHOLECYSTITIS, UNSPECIFIED Assessment/Plan See problem list
--- NOTE | 2020-04-16 11:30 | EKG ---
Test Reason : Blood Pressure : / mmHG Vent. Rate : 069 BPM Atrial Rate : 069 BPM P-R Int : 144 ms QRS Dur : 092 ms QT Int : 354 ms P-R-T Axes : 011 -08 037 degrees QTc Int : 379 ms NORMAL SINUS RHYTHM INCOMPLETE RIGHT BUNDLE BRANCH BLOCK BORDERLINE ECG WHEN COMPARED WITH ECG OF 09-FEB-2020 15:07, INCOMPLETE RIGHT BUNDLE BRANCH BLOCK IS NOW PRESENT NON-SPECIFIC CHANGE IN ST SEGMENT IN LATERAL LEADS T WAVE INVERSION NO LONGER EVIDENT IN LATERAL LEADS Confirmed by KATH MONZON MD ([id number]) on 04/16/2020 11:30:37 AM Referred By: Confirmed By:KATH MONZON MD
[2020-04-16] MEDS ORDERED: fentaNYL CITRATE 250 MCG/5 ML VIAL ONE (13:27)
[2020-04-16] MEDS ORDERED: PROPOFOL 20 ML ONE (13:27)
[2020-04-16] MEDS ORDERED: LIDOCAINE HCL/PF 2% SDV 5ML VIAL ONE (13:27)
[2020-04-16] MEDS ORDERED: ROCURONIUM BROMIDE 50 MG/5 ML SYRINGE ONE (13:27)
[2020-04-16] MEDS ORDERED: MIDAZOLAM HCL 2 MG/2 ML SINGLE DOSE VIAL ONE (13:27)
[2020-04-16] MEDS ORDERED: DEXAMETHASONE SOD PHOSPHATE 4 MG/1 ML VIAL ONE (14:20)
[2020-04-16] MEDS ORDERED: GLYCOPYRROLATE 0.2 MG/1 ML VIAL ONE ×2 (14:30→15:21)
[2020-04-16] MEDS ORDERED: NEOSTIGMINE METHYLSULFATE 0.5 MG/ML - 10 ML MDV ONE (15:22)
[2020-04-16] MEDS ORDERED: BUPIVACAINE HCL/PF 0.5% (5 MG/ML) 30 ML VIAL IJ ONE (15:27)
[2020-04-16] MEDS ORDERED: ONDANSETRON 4 MG/2 ML VIAL ONE (16:08)
[2020-04-16] MEDS ORDERED: ONDANSETRON 4 MG/2 ML VIAL IVPUSH ONE (16:20)
--- NOTE | 2020-04-16 16:25 | OP ---
Operative Note - Note: Operative Date: 04/16/20 Pre-Operative Diagnosis: acalculous cholecystitis/biliary sludge Operation: laparoscopic cholecystectomy Findings: edematous gallbladder w/biliary sludge Post-Operative Diagnosis: Same as Pre-op Surgeon: Cody Hernandez Russet Repairer: Ean Lacey Anesthesiologist/TINNER AUTOMATIC: Maddie Givens Anesthesia: General Specimens Removed: gallbladder and contents Estimated Blood Loss (mls): 10
[2020-04-16] MEDS ORDERED: PROMETHAZINE HCL 25 MG/1 ML VIAL IVPUSH ONE (17:00)
[2020-04-16] MEDS ORDERED: PROMETHAZINE HCL 25 MG/1 ML VIAL ONE (17:09)
[2020-04-16] MEDS ORDERED: oxyCODONE HCL 5 MG TABLET PO PRN (17:11)
[2020-04-16] MEDS ORDERED: PROMETHAZINE HCL 25 MG/1 ML VIAL IVPUSH PRN (17:11)
[2020-04-16] MEDS: SODIUM CHLORIDE 1,000 ML IV SCH (18:03)
[2020-04-16] MEDS: MORPHINE SULFATE 2 MG/ML VIAL IVPUSH PRN (19:52)
[2020-04-17] MEDS: SODIUM CHLORIDE 1,000 ML IV SCH (03:06)
[2020-04-17] MEDS: MORPHINE SULFATE 2 MG/ML VIAL IVPUSH PRN (06:43)
[2020-04-17 07:35] LABS: BASO % 0.2 % (0-2.0); HEMATOCRIT 44.4 % (35.4-49); HEMOGLOBIN 14.7 GM/dL (11.7-16.9); LYMPH % 17.2 % (8-40); MCH 28.6 pg (25.7-33.7); MEAN CELL VOLUME 86.7 fl (80-96); MEAN PLT VOLUME 7.8 fl (7.5-11.1); NEUT % 73.6 % (42.8-82.8); PLATELET COUNT 306 K/MM3 (134-434); RBC 5.13 M/mm3 (4.00-5.60); RDW 13.9 % (11.9-15.9); WHITE BLOOD COUNT 14.7 K/mm3 (4.0-10.0)
[2020-04-17 07:53] LABS: ALBUMIN 3.5 g/dl (3.4-5.0); BILIRUBIN,TOTAL 0.7 mg/dL (0.2-1); BLOOD UREA NITROGEN 7.1 mg/dL (7-18); CALCIUM 8.6 mg/dL (8.5-10.1); CREATININE 0.9 mg/dL (0.55-1.3); TOT PROT 6.8 g/dl (6.4-8.2)
[2020-04-17 08:35] VITALS: BP 123/87; PULSE 65
[2020-04-17] MEDS ORDERED: ONDANSETRON 4 MG/2 ML VIAL IVPUSH PRN (09:50)
--- NOTE | 2020-04-17 09:50 | PN ---
Progress Note (short form) - Note Progress Note: GENERAL SURGERY POD #1 s/p Lap Aneta Alert. C/o mild incisional tenderness. OOB and ambulating unassisted. Adequate pain management Tolerating clears. Voiding spontaneously Denies n/v/f/c, CP, palpitations, SOB or WINTER. AVSS. Afebrile. Gen: alert. nad ABD: all surgical ports c/d/i LE: scds bilat. soft. nt. Problem List - Problems (1) Acalculous cholecystitis Assessment/Plan: Advance diet to regular Cleared for DC home today. Above discussed with Dr. Hernandez and agrees. Code(s): K81.9 - CHOLECYSTITIS, UNSPECIFIED (2) RUQ abdominal pain Code(s): R10.11 - RIGHT UPPER QUADRANT PAIN (3) Low back pain Code(s): M54.5 - LOW BACK PAIN Qualifiers: Chronicity: acute Back pain laterality: right Sciatica presence: without sciatica Qualified Code(s): M54.5 - Low back pain
--- NOTE | 2020-04-17 09:52 | PN ---
Progress Note, Physician Chief Complaint: Cholecystitis History of Present Illness: NAD in chair walked in hallway earlier mild nausea at the moment Tolerated clear liquids - Current Medication List Current Medications: Active Medications Fentanyl (Sublimaze Injection -) 50 mcg IVPUSH [id number] PRN PRN Reason: PAIN-PACU ORDER X 4 DOSES ONLY Sodium Chloride (Normal Saline -) 1,000 mls @ 100 mls/hr IV ASDIR JOSIE Last Admin: 04/17/20 03:06 Dose: 100 mls/hr Documented by: Morphine Sulfate (Morphine Sulfate) 2 mg IVPUSH Q4H PRN PRN Reason: PAIN LEVEL 7 - 10 Last Admin: 04/17/20 06:43 Dose: 2 mg Documented by: Oxycodone HCl (Roxicodone -) 5 mg PO Q4H PRN PRN Reason: PAIN LEVEL 1-5 Last Admin: 04/16/20 22:02 Dose: 5 mg Documented by: Promethazine HCl (Phenergan Injection -) 12.5 mg IVPUSH Q6H PRN PRN Reason: NAUSEA-FOR RESCUE AFTER 15 MIN - Objective Vital Signs: Vital Signs Temperature 98.3 F 04/17/20 08:35 Pulse Rate 65 04/17/20 08:35 Respiratory Rate 18 04/17/20 09:00 Blood Pressure 123/87 04/17/20 08:35 O2 Sat by Pulse Oximetry (%) 100 04/17/20 09:00 Constitutional: Yes: Well Nourished, No Distress, Calm Cardiovascular: Yes: Regular Rate and Rhythm Respiratory: Yes: Regular, CTA Bilaterally Gastrointestinal: Yes: Normal Bowel Sounds, Soft Musculoskeletal: Yes: WNL Extremities: Yes: WNL Edema: No Wound/Incision: Yes: Clean/Dry (x 4), Well Approximated, Open to air Neurological: Yes: Alert, Oriented Psychiatric: Yes: Alert, Oriented Labs: CBC, BMP 04/17/20 06:35 04/17/20 06:35 INR, PTT INR 0.97 (0.83-1.09) 04/16/20 06:25 Problem List - Problems (1) Abdominal pain Problems reviewed: Yes Code(s): R10.9 - UNSPECIFIED ABDOMINAL PAIN (2) Cholecystitis Assessment/Plan: -CTAP: Thick walled gallbladder with trace pericholecystic fluid. -U/S Abd:The gallbladder is largely contracted and thick walled with a trace pericholecystic fluid present. There is a small amount of biliary sludge within the gallbladder lumen. -S/P cholecystectomy -Advance diet to soft -Surgical consult appreciated -Tylenol or Oxycodone PRN for pain -Zofran SL prn for nausea -Cleared by surgery for dc home Problems reviewed: Yes Code(s): K81.9 - CHOLECYSTITIS, UNSPECIFIED Assessment/Plan See problem list D/C home after pt tolerates soft diet
--- NOTE | 2020-04-17 12:28 | OP ---
DATE OF OPERATION: 04/16/2020 PREOPERATIVE DIAGNOSIS: Acalculous cholecystitis and biliary sludge. PREOPERATIVE DIAGNOSIS: Acalculous cholecystitis and biliary sludge. PROCEDURE: Laparoscopic cholecystectomy. SURGEON: Cody Hernandez MD [employer] DEAN: Ean Ma PA-C ANESTHESIA: General. OPERATIVE FINDINGS: There was an edematous gallbladder with biliary sludge. The rest of the findings were unremarkable. DESCRIPTION OF PROCEDURE: The patient was placed on the operating room table in supine position. After the induction of general anesthesia, the patient's abdomen was prepped with ChloraPrep and draped in sterile fashion. Time-out was taken and then pneumoperitoneum established above the umbilicus using a Veress needle. Once 15 mm of intra-abdominal pressure was obtained, a 5-mm port was placed at the umbilicus. Additional lateral 5-mm ports and a subxiphoid 12-mm port were placed and laparoscopy carried out, and the previously noted findings were observed. The gallbladder was placed on cephalad and lateral traction, and dissection was begun at the neck of the gallbladder where the peritoneum was opened medially and laterally using blunt and sharp dissection and electrocautery. Dissection continued in the triangle of Calot where the cystic duct was identified coursing from the neck of the gallbladder distally to the common bile duct. It was dissected proximally and distally for length. Similarly, the artery was similarly identified and dissected. A critical view of safety was taken, and then the cystic duct divided proximally and distally using Endo [place] after it was clipped twice proximally and distally with large hemoclips. The artery was similarly clipped and divided. Hemostasis was checked for and noted to be good and then the gallbladder was removed from the liver bed in a retrograde fashion using electrocautery. Prior to removal from the edge of the liver, hemostasis was again verified and then the gallbladder removed from the edge of the liver, placed in an EndoCatch, and brought out through the subxiphoid port. Pneumoperitoneum was reestablished, hemostasis verified again, and then the 5-mm lateral and subxiphoid ports were removed under laparoscopic vision without evidence of bleeding from the port sites. The umbilical port was removed and the pneumoperitoneum evacuated. All port sites were infiltrated with 0.5% Marcaine and the skin edges closed with 4-0 Biosyn in a subcuticular and continuous fashion. Steri-Strips and Band-Aid dressings were placed and the procedure terminated at this point and the patient aroused from general anesthesia and transferred to the post anesthesia care unit in stable condition awake and alert. ESTIMATED BLOOD LOSS: 10 mL. REPLACEMENTS: Crystalloid. DRAINS: None. SPECIMENS: Gallbladder and contents to pathology. I, Cody Hernandez, was physically present in the operating room from the time the patient was placed on the operating room table until he was transferred to the post anesthesia care unit in my company. MD JS Regalado/[id number] MTDD
[2020-04-17 13:06] VITALS: TEMP 98.2
--- NOTE | 2020-04-20 17:35 | PATH ---
Surgical Pathology Report Patient Name: GILA PAINTER [facility]. Rec. #: [id number] /Age/Gender: 1980 (Age: 39) / M Account: [id number] Location: AMBULATORY SURG Taken: 04/16/2020 Received: 04/17/2020 Reported: 04/20/2020 Physicians: MD Jordan Jones M.D. Specimen(s) Received GALLBLADDER Clinical History Cholecystitis without calculus Final Diagnosis GALLBLADDER, LAPAROSCOPIC CHOLECYSTECTOMY: CHRONIC CHOLECYSTITIS, CHOLESTEROLOSIS, AND CHOLELITHIASIS. Electronically Signed Shayla Nobles M.D. Gross Description Received in formalin, labeled "gallbladder," is a 7.0 x 2.5 x 2.4 cm. gallbladder with a 0.2 cm. in length portion of cystic duct attached. The outer surface is mann-louie with a focal defect and varies from smooth to shaggy. The lumen contains green, tenacious bile as well as abundant mann choleliths averaging 0.1 cm in greatest dimension. The mucosa is dark green and velvety with gold cholesterol stippling. The wall of the gallbladder averages 0.1 cm. in thickness. Nuisance Wildlife Trapper sections are submitted in one cassette. 04/17/2020 [facility]04/17/2020
== END 2020-04-17 13:21 | disposition home or self-care (01) ==
LOC: JER 08:26 → UNDOADMIN 18:32 → JERBED 18:32 → J7W 04-16 03:42 → JASUSAT 04-16 17:02 → J7W 04-16 17:25 → JASUSAT 04-17 13:21
PROVIDERS: ATTEND Nurse Practitioner
PROC: 0FT44ZZ Resection of Gallbladder, Percutaneous Endoscopic Approach (ICD-10-PCS; principal; 2020-04-16 10:30)
DX: K80.10 Calculus of gallbladder with chronic cholecystitis without obstruction (principal)
CPT/HCPCS: 36415; 74178-TC; 76700-TC; 78226-TC; 80053; 81003; 83690; 83735; 84100; 85025; 85027; 85610; 87086; 88304-TC; 93005; 93010; 94760; 99285-25; A9537; J0131; J7030; Q9967; U0003

== ENCOUNTER 2020-08-21 05:36 | Inpatient (IN) | payer OTHER ==
[2020-08-20 12:25] VITALS: BMI 25.9
[2020-08-21] MEDS ORDERED: BACITRACIN 15 GM TUBE TOPICAL OINTMENT ONE (07:10)
[2020-08-21] MEDS ORDERED: THROMBIN (BOVINE) 5,000 UNIT VIAL TP ONE (07:10)
[2020-08-21] MEDS ORDERED: methylPREDNISolone ACET (DEPO) 40 MG/1 ML VIAL ONE (07:10)
[2020-08-21] MEDS ORDERED: PROPOFOL 20 ML ONE (07:29)
[2020-08-21] MEDS ORDERED: SUCCINYLCHOLINE CHLORIDE 200 MG/10 ML SYRINGE ONE (07:29)
[2020-08-21] MEDS ORDERED: MIDAZOLAM HCL 2 MG/2 ML SINGLE DOSE VIAL ONE ×2 (07:29)
[2020-08-21] MEDS ORDERED: ROCURONIUM BROMIDE 50 MG/5 ML SYRINGE ONE (07:30)
[2020-08-21] MEDS ORDERED: ceFAZolin SODIUM 1 GM VIAL IVPB ONE (07:55)
[2020-08-21] MEDS ORDERED: BACITRACIN 50,000 UNITS VIAL TP ONE (08:57)
[2020-08-21] MEDS ORDERED: BUPIVACAINE HCL/PF 0.5% (5MG/ML) 10 ML VIAL IJ ONE (08:58)
[2020-08-21] MEDS ORDERED: ONDANSETRON 4 MG/2 ML VIAL IVPUSH PRN ×2 (09:18→09:50)
[2020-08-21] MEDS ORDERED: MORPHINE SULFATE 2 MG/ML VIAL IVPUSH PRN (09:19)
[2020-08-21] MEDS ORDERED: NEOSTIGMINE METHYLSULFATE 0.5 MG/1 ML - 10 ML MDV ONE (09:20)
[2020-08-21] MEDS ORDERED: ceFAZolin SODIUM 1 GM VIAL ONE ×2 (09:21→15:58)
[2020-08-21] MEDS ORDERED: DEXAMETHASONE SOD PHOSPHATE 4 MG/1 ML VIAL ONE (09:21)
[2020-08-21] MEDS ORDERED: GLYCOPYRROLATE 0.2 MG/1 ML VIAL ONE (09:21)
[2020-08-21] MEDS ORDERED: LIDOCAINE HCL/PF 2% SDV 5ML VIAL ONE (09:21)
[2020-08-21] MEDS ORDERED: PATIENT'S OWN MEDICATION (NON-FORMULARY) (Gabapentin [Gralise] 600 MG Tab.Er.24h) PO SCH (10:00)
[2020-08-21] MEDS: diazePAM 5 MG TABLET PO SCH ×2 (10:00→16:50)
[2020-08-21] MEDS ORDERED: LACTATED RINGERS SOLUTION 1,000 ML IV SCH (10:00)
[2020-08-21] MEDS ORDERED: ONDANSETRON 4 MG/2 ML VIAL ONE (10:11)
[2020-08-21] MEDS ORDERED: PROMETHAZINE HCL 25 MG/1 ML VIAL ONE (11:36)
[2020-08-21] MEDS ORDERED: PROMETHAZINE HCL 25 MG/1 ML VIAL IVPB ONE (11:41)
[2020-08-21] MEDS ORDERED: PROMETHAZINE HCL 25 MG/1 ML VIAL IVPUSH ONE (12:19)
[2020-08-21] MEDS ORDERED: oxyCODONE HCL 5 MG TABLET ONE (14:37)
[2020-08-21] MEDS: oxyCODONE HCL 5 MG TABLET PO PRN ×2 (14:40→21:54)
[2020-08-21] MEDS: CEFAZOLIN 1 GM/D5W 1 GM/50 ML BAG IVPB SCH (16:03)
[2020-08-21] MEDS ORDERED: diazePAM 5 MG TABLET ONE (16:12)
[2020-08-21] MEDS ORDERED: MORPHINE SULFATE 2 MG/ML VIAL ONE (17:09)
[2020-08-21] MEDS: DOCUSATE SODIUM 100 MG CAPSULE (FP) PO SCH (21:54)
[2020-08-21] MEDS: D5-1/2NS+20 MEQ KCL - 20 MEQ/1,000 ML INFUS.BAG IV SCH (21:58)
[2020-08-22] MEDS: CEFAZOLIN 1 GM/D5W 1 GM/50 ML BAG IVPB SCH (02:30)
[2020-08-22] MEDS ORDERED: ceFAZolin SODIUM 1 GM VIAL ONE (02:41)
[2020-08-22] MEDS ORDERED: DEXTROSE 5%-WATER - 50 ML IVPB ONE (02:41)
[2020-08-22] MEDS ORDERED: CEFAZOLIN 1 GM in DEXTROSE 5%-WATER - 1 GM/50 ML IVPB IVPB SCH (02:45)
[2020-08-22] MEDS: diazePAM 5 MG TABLET PO SCH ×2 (02:47→09:26)
[2020-08-22] MEDS: D5-1/2NS+20 MEQ KCL - 20 MEQ/1,000 ML INFUS.BAG IV SCH ×2 (06:06→09:30)
[2020-08-22] MEDS: DOCUSATE SODIUM 100 MG CAPSULE (FP) PO SCH ×3 (06:07→13:39)
[2020-08-22 07:41] VITALS: BP 110/68; PULSE 76; TEMP 98.4
[2020-08-22] MEDS ORDERED: PT OWN MED DRAWER 7, Y5N ONE (10:37)
[2020-08-22] MEDS: oxyCODONE HCL 5 MG TABLET PO PRN (11:50)
== END 2020-08-22 14:39 | disposition home or self-care (01) | DRG 320 ==
LOC: J2C 05:36 → J8W 19:05
PROVIDERS: ADMIT Neurological Surgery; ATTEND Neurological Surgery
PROC: 01NR0ZZ Release Sacral Nerve, Open Approach (ICD-10-PCS; principal; 2020-08-21 07:30)
DX: M48.07 Spinal stenosis, lumbosacral region (principal); M54.17 Radiculopathy, lumbosacral region
CPT/HCPCS: 72100-TC-FY; 86850; 86900; 86901; 94760; 97116-GP; 97162-GP

== ENCOUNTER 2022-10-23 07:02 | Emergency (ER) | payer OTHER ==
[2022-10-23 07:17] VITALS: BP 158/96; PULSE 98; RESP 18; TEMP 99; BMI 29.9
[2022-10-23] MEDS ORDERED: KETOROLAC TROMETHAMINE 30 MG/1 ML VIAL IM ONE (07:35)
[2022-10-23] MEDS ORDERED: DEXAMETHASONE LIQUID 0.5 MG/5 ML PO ONE (07:35)
[2022-10-23] MEDS ORDERED: KETOROLAC TROMETHAMINE 30 MG/1 ML VIAL ONE (07:52)
[2022-10-23] MEDS ORDERED: DEXAMETHASONE SOD PHOSPHATE 10 MG/1 ML VIAL ONE (07:52)
== END 2022-10-23 08:40 | disposition home or self-care (01) ==
LOC: JER 07:02 → JERFT 07:02
PROC: 3E0233Z Introduction of Anti-inflammatory into Muscle, Percutaneous Approach (ICD-10-PCS; principal; 2022-10-23)
DX: U07.1 COVID-19 (principal); J02.9 Acute pharyngitis, unspecified
CPT/HCPCS: 0241U-QW; 87651; 99284-25